=== PATIENT | male | born 1945 | race Caucasian/White ===

== ENCOUNTER 2018-02-16 09:43 | Emergency (ER) | payer MEDICARE, SELFPAY ==
[2018-02-16 09:46] VITALS: BP 152/72; PULSE 79; RESP 18; TEMP 36.4; O2SAT 96
--- NOTE | 2018-02-16 09:58 | W.ED.GENAD ---
Discharge Plan Disposition Patient Disposition: HOME Condition: Good Discharge Details Chief Complaint: EyeProblem Clinical Impression: Bronchitis, Conjunctivitis Primary Care Provider: Edie Graham ED Provider: Ajit Hernandez Home Meds and New Rx's Prescriptions: New azithromycin 250 mg tablet See Rx Instructions .ROUTE .COMPLEX Qty: 6 RF: 0 tobramycin 0.3 % drops 1 drp OP Q3H Qty: 5 RF: 0 No Action promethazine-codeine 6.25-10 mg/5 mL syrup 5 ml PO Q4H PRN (Reason: cough) Qty: 150 RF: 0 ibuprofen 200 MG capsule 200 mg PO PRN PRNRF: 0 cetirizine [Zyrtec] 10 MG tablet 10 mg PO DAILY RF: 0 fluticasone [Flonase Allergy Relief] 9.9 ML spray,suspension 1 spry NS DAILY PRNRF: 0 ProAir HFA 8.5 GM HFA aerosol inhaler 1 puff Inhalation Q4H PRN 30 Days Qty: 1 RF: 6 Varicella-Zoster Ge/As01b/Pf [Shingrix Vial Kit] 50 MCG INJ 50 mcg IM ONCE Qty: 1 RF: 1 nadolol 20 MG tablet 20 mg PO DAILY RF: 0 atorvastatin 10 mg tablet 10 mg PO DAILY Qty: 90 RF: 3 allopurinol 300 mg tablet 300 mg PO DAILY Qty: 90 RF: 3 Discharge Instructions Instructions: Acute Bronchitis (ED), Conjunctivitis (ED) Additional Instructions: Please take the medications as directed. If you notice any worsening of your symptoms, or any new symptoms such as vomiting, diarrhea, fever, chills, shortness of breath, chest pain, numbness, weakness, or fainting , please return immediately to the emergency department for reevaluation. Please follow up with your primary care provider as soon as possible for reassessment and reevaluation. As always, it was a pleasure participating in your medical care today. Referrals: Edie Graham NP [Primary Care Provider] - [facility] General Date/Time Provider Initiated Documentation: 02/16/18 09:51. Related Data Home Medications Medication Instructions Recorded Confirmed ibuprofen 200 mg PO PRN PRN 06/18/12 02/14/18 cetirizine [Zyrtec] 10 mg PO DAILY tab-cap 02/21/13 02/14/18 fluticasone [Flonase Allergy 1 spry NS DAILY PRN 02/17/15 02/14/18 Relief] albuterol sulfate [Proair Hfa] 1 puff INHALATION Q4H PRN 30 Days 08/21/17 02/14/18 #1 inhaler nadolol 20 mg PO DAILY tab-cap 09/11/17 02/14/18 allopurinol 300 mg tablet 300 mg PO DAILY #90 tab-cap 01/10/18 02/14/18 atorvastatin 10 mg tablet 10 mg PO DAILY #90 tab 01/10/18 02/14/18 promethazine 6.25 mg-codeine 10 5 ml PO Q4H PRN #150 ml 02/14/18 02/14/18 mg/5 mL syrup azithromycin See Rx Instructions .ROUTE 02/16/18 .COMPLEX #6 tab tobramycin 1 drp OP Q3H #5 ml 02/16/18 Previous Rx's Medication Instructions Recorded albuterol sulfate [Proair Hfa] 1 puff INHALATION Q4H PRN 30 Days 08/21/17 #1 inhaler allopurinol 300 mg tablet 300 mg PO DAILY #90 tab-cap 01/10/18 atorvastatin 10 mg tablet 10 mg PO DAILY #90 tab 01/10/18 promethazine 6.25 mg-codeine 10 5 ml PO Q4H PRN #150 ml 02/14/18 mg/5 mL syrup azithromycin See Rx Instructions .ROUTE 02/16/18 .COMPLEX #6 tab tobramycin 1 drp OP Q3H #5 ml 02/16/18 Allergies Allergy/AdvReac Type Severity Reaction Status Date / Time amoxicillin [Amoxicillin] AdvReac Intermediate thrush Verified 02/14/18 13:05 omeprazole AdvReac Mild abdominal Verified 02/14/18 13:05 pain General Stated Complaint: EyeProblem BETTY: 4 PFSH Surgical History 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 Other COPD (chronic obstructive pulmonary disease) Social History Smoking/Tobacco Use Status: Never Course Vital Signs Temperature 36.4 C L 02/16/18 09:46 Pulse 79 02/16/18 09:46 Respiratory Rate 18 02/16/18 09:46 Blood Pressure 152/72 H 02/16/18 09:46 Pulse Oximetry 96 02/16/18 09:46 Temperature 36.4 C L 02/16/18 09:46 Temperature Source Temporal Artery Scan 02/16/18 09:46 Pulse 79 02/16/18 09:46 Respiratory Rate 18 02/16/18 09:46 Respiratory Effort Non-Labored 02/16/18 09:46 Blood Pressure 152/72 H 02/16/18 09:46 Blood Pressure Position Sitting 02/16/18 09:46 Pulse Oximetry 96 02/16/18 09:46 Oxygen Delivery Method Room Air 02/16/18 09:46 Oxygen Flow Rate 0 02/16/18 09:46 Pain Level 0 02/16/18 09:46
== END 2018-02-16 10:05 | disposition home or self-care (01) ==
LOC: ER 10:07
PROVIDERS: Emergency Provider Student in an Organized Health Care Education/Training Program; PCP Nurse Practitioner
DX: J40 Bronchitis, not specified as acute or chronic (principal); H10.9 Unspecified conjunctivitis
CPT/HCPCS: 99283

== ENCOUNTER 2018-06-13 00:35 | Outpatient (CLI) | payer MEDICARE, SELFPAY ==
--- NOTE | 2018-06-13 15:09 | DI.US_ITS ---
SYMPTOM/DIAGNOSIS: RADICULAR PAIN ORIGINATING FROM FEMORAL TRIANGLE, PAIN RT LEG, M79.604 DUPLEX VENOUS ULTRASOUND RIGHT LOWER EXTREMITY: The study was carried out according to the usual protocol. The superficial, femoral, popliteal and proximal trifurcation in the superior portion of the leg are well seen. Good compressibility is noted throughout. Flow is demonstrated and flow augmentation was easily elicited with calf compression. SUMMARY: There is no evidence of DVT.
== END 2018-06-13 00:55 ==
PROVIDERS: PCP Family Medicine; Visit Provider Family Medicine
DX: M79.604 Pain in right leg (principal); M54.10 Radiculopathy, site unspecified
CPT/HCPCS: 93971

== ENCOUNTER 2018-09-03 07:28 | Outpatient (CLI) | payer MEDICARE, SELFPAY ==
[2018-09-03 09:23] LABS: ALT 49 U/L (12-78); AST 24 U/L (15-37); Albumin 3.8 g/dL (3.4-5.0); Alkaline Phosphatase 60 U/L (46-116); Anion Gap 9.1 mmol/L (3-11); BUN 23 mg/dL (7-18); Bilirubin, Total 0.8 mg/dL (0.2-1.0); CO2 28.9 mmol/L (21.0-32.0); CREATININE 0.87 mg/dL (0.70-1.30); Calcium 8.9 mg/dL (8.5-10.1); Calculated LDL 79 mg/dL; Chloride 104 mmol/L (98-107); Cholesterol 148 mg/dL (50-200); Glucose 150 mg/dL (70-100); HDL Cholesterol 39 mg/dL (40-60); Potassium 4.8 mmol/L (3.5-5.1); Sodium 142 mmol/L (136-145); Total Protein 6.9 g/dL (6.4-8.2); Triglyceride 154 mg/dL (30-150)
== END 2018-09-03 07:48 ==
PROVIDERS: PCP Family Medicine; Visit Provider Family Medicine
DX: K74.60 Unspecified cirrhosis of liver (principal); E78.5 Hyperlipidemia, unspecified
CPT/HCPCS: 36415; 80053; 80061; 83721

== ENCOUNTER 2019-06-05 08:19 | Outpatient (CLI) | payer MEDICARE, SELFPAY ==
--- NOTE | 2019-06-05 07:00 | DI.RAD_ITS ---
EXAM: XR HIP LT COMPLETE AP PELVIS CLINICAL HISTORY: Left Hip Pain TECHNIQUE: COMPARISON: No exams were available for comparison FINDINGS: Three views were obtained. The cartilaginous joint spaces of the hips are mildly narrowed superiorly . There is mild subchondral sclerosis of the acetabula bilaterally. There are moderate hypertrophic acetabular changes and mild spurring at greater trochanters of the femurs bilaterally. Femoral head s appear fairly well maintained. No other significant abnormality seen. 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
--- NOTE | 2019-06-05 08:15 | DI.RAD_ITS ---
EXAM: XR SHOULDER LT COMPLETE 2+V CLINICAL HISTORY: left shoulder pain TECHNIQUE: COMPARISON: No exams were available for comparison FINDINGS: Two views were obtained. There are minimal hypertrophic degenerative changes at the acromioclavicula r joint and slight inferior acromial spurring is noted. Minimal spurring noted at the greater tubero sity of the humerus. There are probable sub chondral cysts of the humeral head. Cartilaginous joint space of the glenohumeral joint may be mildly narrowed. There are mild to moderate glenoid marginal osteophytes. IMPRESSION: Mild degenerative changes of glenohumeral and acromioclavicular joints as described above.
--- NOTE | 2019-06-05 08:15 | DI.RAD_ITS ---
EXAM: XR SHOULDER RT COMPLETE 2+V CLINICAL HISTORY: right shoulder pain TECHNIQUE: COMPARISON: XR SHOULDER LT COMPLETE 2+V from 06/05/2019 FINDINGS: Two views were obtained. There are moderate hypertrophic degenerative changes of the acromioclavicul ar joint. Moderate hypertrophic spurring inferior acromion is noted. Mild degenerative spurring of the glenoid and to a lesser degree the humeral head noted. Cartilaginous joint space of the glenohum eral joint may be mildly narrowed. IMPRESSION: Mild DJD glenohumeral joint, moderate DJD acromioclavicular joint.
== END 2019-06-05 08:39 ==
PROVIDERS: PCP Family Medicine; Visit Provider Student in an Organized Health Care Education/Training Program
DX: M25.511 Pain in right shoulder (principal); M19.011 Primary osteoarthritis, right shoulder; M25.512 Pain in left shoulder; M19.012 Primary osteoarthritis, left shoulder; M25.552 Pain in left hip; M16.0 Bilateral primary osteoarthritis of hip; M75.51 Bursitis of right shoulder; M75.52 Bursitis of left shoulder; M25.852 Other specified joint disorders, left hip; M16.12 Unilateral primary osteoarthritis, left hip; I10 Essential (primary) hypertension; E11.9 Type 2 diabetes mellitus without complications; Z79.84 Long term (current) use of oral hypoglycemic drugs
CPT/HCPCS: 99203; 99214; 73030; 73502

== ENCOUNTER 2019-08-25 01:41 | Outpatient (CLI) | payer MEDICARE, SELFPAY ==
[2019-08-25 16:43] LABS: ALT 42 U/L (16-63); AST 28 U/L (15-37); Alkaline Phosphatase 62 U/L (46-116); BUN 21 mg/dL (7-18); Bilirubin, Total 0.6 mg/dL (0.2-1.0); Chloride 104 mmol/L (98-107); Glucose 92 mg/dL (74-106); Potassium 4.1 mmol/L (3.5-5.1); Sodium 141 mmol/L (136-145)
== END 2019-08-25 02:01 ==
PROVIDERS: PCP Family Medicine; Visit Provider Family Medicine
DX: E11.9 Type 2 diabetes mellitus without complications (principal)
CPT/HCPCS: 36415; 80053

== ENCOUNTER 2020-10-11 15:44 | Outpatient (CLI) | payer MEDICARE, SELFPAY ==
--- NOTE | 2020-10-11 15:30 | DI.RAD_ITS ---
Exam(s) XR LUMBAR SPINE AP, LAT EXAM: XR LUMBAR SPINE AP, LAT CLINICAL HISTORY: low back pain. TECHNIQUE: 2D digital imaging was performed. COMPARISON: No exams were available for comparison FINDINGS: There is partial sacralization of the L5 vertebral body. There is normal alignment of the lumbar spi ne. Throughout the lumbar spine there is disc space narrowing and endplate osteophytes. Degenerativ e changes are seen in the facets in the lower lumbar spine. No acute fracture or subluxation. The b ones are normally mineralized. There is atherosclerosis. IMPRESSION: Moderately severe degenerative changes in the lumbar spine. DATA REPOSITORY: RADIATION DOSE DELIVERED:
== END 2020-10-11 15:45 | disposition home or self-care (01) ==
LOC: DIORS 15:44
PROVIDERS: PCP Family Medicine; Referring Provider Family Medicine; Visit Provider Student in an Organized Health Care Education/Training Program
DX: M54.5 Low back pain (principal); M47.816 Spondylosis without myelopathy or radiculopathy, lumbar region
CPT/HCPCS: 99214; 72100

== ENCOUNTER → 2021-07-19 00:32 | Outpatient (CLI) | payer MEDICARE, SELFPAY ==
--- NOTE | 2021-07-19 06:45 | DI.CT_ITS ---
Exam(s) CT RENAL COLIC WO EXAM: CT RENAL COLIC WO CLINICAL HISTORY: Evaluate for nephrolithiasis, rt flank pain, r10.9. TECHNIQUE: Imaging Protocol: Axial computed tomography images with coronal and sagittal reformatted images were created and reviewed. CONTRAST MATERIAL: Noncontrast COMPARISON: No exams were available for comparison FINDINGS: ABDOMEN: Lung Bases: Normal where visualized. Liver: Enlarged. Hepatic steatosis. No measurable mass. Gallbladder and biliary tract: No radiodense calculus or dilation. Pancreas: Normal density, no calcifications or inflammatory process. Spleen: Normal. Kidneys: Normal size, contour and axis. No radiodense stones or obstructive uropathy. Small parapelv ic cysts. No masses seen. Adrenal glands: No masses seen. Abdominal Aorta: Abdominal portion non-dilated. Atherosclerotic changes. PELVIS: Bladder: Symmetric distention, mild wall thickening. Prostate slightly enlarged. Bowel: Prominent diverticulosis. No evidence of diverticulitis. Appendix normal. Normal quantity o f stool. Both no obstruction or bowel wall thickening. Peritoneal cavity: No ascites, collection or mesenteric inflammatory response. Soft tissues: Small fa tty containing umbilical hernia. Fatty containing bilateral inguinal hernias, left greater than righ t. Bones: Degenerative disc changes and facet degenerative changes throughout. No compression fractures .. IMPRESSION: Small bilateral renal parapelvic cysts. No evidence of stones, suspicious masses or hydronephrosis. Mild bladder wall thickening. RADIATION DOSE DELIVERED: 1,432.71mGy.cm Total DLP DATA REPOSITORY: All CT scans at this facility are submitted to the National Radiology Data Registry (NRDR) Dose Index Registry (DIR) with the [employer] (ACR). RADIATION OPTIMIZATION: All CT scans at this facility use at least one of these dose optimization te chniques: automated exposure control; mA and/or kV adjustment per patient size (includes targeted exa ms where dose is matched to clinical indication); or iterative reconstruction.
== END ==
PROVIDERS: PCP Family Medicine; Visit Provider Family Medicine
DX: R10.31 Right lower quadrant pain (principal); K76.0 Fatty (change of) liver, not elsewhere classified; R16.0 Hepatomegaly, not elsewhere classified; N40.0 Benign prostatic hyperplasia without lower urinary tract symptoms; N32.89 Other specified disorders of bladder
CPT/HCPCS: 74176

== ENCOUNTER 2021-09-03 07:34 | Emergency (ER) | payer MEDICARE, SELFPAY ==
[2021-09-03] VITALS (15 sets, daily range): BP systolic 124–182; BP diastolic 52–67; PULSE 58–72; RESP 10–23; O2SAT 95–97
--- NOTE | 2021-09-03 07:30 | RT.EKG_ITS ---
APPROVED REPORT Exam: Resting ECG Reason for Exam: chest pain Patient Location: E HR:71 bpm ECG Measurements Heart Rate 71 AXIS MI 229 P 9 QRSd 118 QRS -37 QT 407 T 11 QTc 443 Conclusion Sinus rhythm...normal P axis, V-rate 60- 99 Prolonged MI interval...MI >220, V-rate 50- 90 Incomplete left bundle branch block...QRSd>110mS, terminal axis(-90,-1) PHysician: no stemi, unchanged from prior ekg on 1216
--- NOTE | 2021-09-03 07:30 | DI.RAD_ITS ---
Exam(s) XR CHEST 2V PA LATERAL EXAM: XR CHEST 2V PA LATERAL CLINICAL HISTORY: chest pain TECHNIQUE: 2D digital imaging was performed of the chest. Two images were obtained. PA and lateral views were obtained. COMPARISON: CR CHEST 2 VIEWS PA,LAT from 02/07/2016 FINDINGS: Due to patient positioning, a portion of the lower right chest wall is not included on this examinati on. MEDIASTINUM: Normal. HEART: Normal. PULMONARY VASCULATURE: Normal. There is tortuosity and ectasia of the thoracic aorta. It appears mor e prominent compared to the examination from 02/07/2016 LUNGS: Clear. PLEURAL SPACE: No pleural effusion or pneumothorax. BONE:Within normal limits for the patient's age. OTHER FINDINGS:Normal. IMPRESSION: No acute pulmonary findings. DATA REPOSITORY: RADIATION DOSE DELIVERED:
--- NOTE | 2021-09-03 07:45 | ED.GENADUL_ITS ---
Discharge Plan Disposition Patient Disposition: STILL A PATIENT Condition: Good Discharge Details Clinical Impression: Gout, unspecified, Acute pain of right foot Primary Care Provider: Yandel Sosa ED Provider: Ajit Hernandez Home Meds and New Rx's Prescriptions: No Action celecoxib [Celebrex] 200 mg capsule 200 mg PO BID Qty: 60 1RF ibuprofen 200 MG capsule 200 mg PO PRN PRN cetirizine [Zyrtec] 10 MG tablet 10 mg PO DAILY fluticasone propionate [Flonase Allergy Relief] 9.9 ML spray,suspension 1 spry NS DAILY PRN albuterol sulfate [ProAir HFA] 8.5 GM HFA aerosol inhaler 1 puff Inhalation Q4H PRN 30 Days Qty: 1 6RF allopurinol 300 mg tablet 300 mg PO DAILY Qty: 90 3RF carvedilol 12.5 mg tablet 12.5 mg PO BID Qty: 180 3RF Rx Instructions: must administer with a meal/food atorvastatin 10 mg tablet 10 mg PO DAILY Qty: 90 3RF metformin 500 mg tablet 500 mg PO BID Qty: 180 3RF losartan 50 mg tablet 50 mg PO DAILY Qty: 90 3RF Medical Decision Making This is a pleasant 76-year-old male with a past medical history of diabetes, hypertension, high cholesterol, who presents today for evaluation of chest pain. Patient states that over the last 1 to 2 days he has had mild increased shortness of breath which she attributed to the increased temperatures and summer weather as of late, however this morning at about 5:30 AM he developed a stabbing right central chest pain, which was worse with exertion, and improved by rest. EMS was contacted, and he was given 325 of aspirin and nitroglycerin. Nitroglycerin seemed to completely relieve his pain. He was brought to the ER for further assessment. Currently he admits to very mild ache, but denies any other complaint. He denies any cough, fever, or shortness of breath currently. He denies any numbness, tingling or weakness. He denies any family history or personal history of cardiac disease otherwise. No other complaints at this time. No history of blood clots. No history of aneurysm or dissection. Physical exam demonstrates a well-appearing male, no signs of acute distress currently, he is hypertensive but vital signs are otherwise stable. Limited bedside echo shows good cardiac contractility at the apex, but the proximal lateral wall seems to be minimally diminished. However this is clearly a limited bedside echo. Difficulty visualizing the right ventricle otherwise. Differential is certainly high for potential cardiac etiology with the patient's symptoms and risk factors. Heart score is moderate. We will evaluate for concerning etiologies, give nitroglycerin as needed, monitor closely and reassess. Patient will be signed out to my colleague Dr. Lyndsay Dyson for follow-up on labs and reassessment. HPI General Date/Time Provider Initiated Documentation: 09/03/21 07:43 . HPI Narrative: This is a pleasant 76-year-old male with a past medical history of diabetes, hypertension, high cholesterol, who presents today for evaluation of chest pain. Patient states that over the last 1 to 2 days he has had mild increased shortness of breath which she attributed to the increased temperatures and summer weather as of late, however this morning at about 5:30 AM he developed a stabbing right central chest pain, which was worse with exertion, and improved by rest. EMS was contacted, and he was given 325 of aspirin and nitroglycerin. Nitroglycerin seemed to completely relieve his pain. He was brought to the ER for further assessment. Currently he admits to very mild ache, but denies any other complaint. He denies any cough, fever, or shortness of breath currently. He denies any numbness, tingling or weakness. He denies any family history or personal history of cardiac disease otherwise. No other complaints at this time. No history of blood clots. No history of aneurysm or dissection. Related Data Home Medications Medication Instructions Recorded Confirmed ibuprofen 200 mg capsule 200 mg PO PRN PRN 06/18/12 10/16/20 cetirizine 10 mg tablet (Zyrtec) 10 mg PO DAILY 02/21/13 10/16/20 fluticasone propionate 50 1 spry NS DAILY PRN 02/17/15 10/16/20 mcg/actuation nasal spray,suspension (Flonase Allergy Relief) albuterol sulfate 90 mcg/actuation 1 puff inhalation Q4H PRN 30 days 08/21/17 10/16/20 aerosol inhaler (ProAir HFA) ##1 allopurinol 300 mg tablet 300 mg PO DAILY #90 tab-caps 08/30/20 10/16/20 celecoxib 200 mg capsule (Celebrex) 200 mg PO BID #60 caps 10/11/20 10/11/20 carvedilol 12.5 mg tablet 12.5 mg PO BID #180 tabs 12/31/20 atorvastatin 10 mg tablet 10 mg PO DAILY #90 tabs 05/12/21 metformin 500 mg tablet 500 mg PO BID #180 tabs 05/12/21 losartan 50 mg tablet 50 mg PO DAILY #90 tabs 06/02/21 Previous Rx's Medication Instructions Recorded albuterol sulfate 90 mcg/actuation 1 puff inhalation Q4H PRN 30 days 08/21/17 aerosol inhaler (ProAir HFA) ##1 allopurinol 300 mg tablet 300 mg PO DAILY #90 tab-caps 08/30/20 celecoxib 200 mg capsule (Celebrex) 200 mg PO BID #60 caps 10/11/20 carvedilol 12.5 mg tablet 12.5 mg PO BID #180 tabs 12/31/20 atorvastatin 10 mg tablet 10 mg PO DAILY #90 tabs 05/12/21 metformin 500 mg tablet 500 mg PO BID #180 tabs 05/12/21 losartan 50 mg tablet 50 mg PO DAILY #90 tabs 06/02/21 Allergies Allergy/AdvReac Type Severity Reaction Status Date / Time amoxicillin [Amoxicillin] AdvReac Intermediate thrush Verified 07/12/21 13:48 omeprazole AdvReac Mild abdominal Verified 07/12/21 13:48 pain General BETTY: 4 Review of Systems All systems reviewed & are unremarkable except as noted in HPI and below PFSH All Active Problems (Updated 09/03/21 @ 07:54 by Ajit Hernandez DO) Acute pain of right foot (Acute) Right flank pain (Acute) Functional diarrhea (Acute) Cataracts, bilateral (Acute) 02/02/21 [facility] Lumbar spondylosis (Acute) Conductive hearing loss, external ear (Acute) Impacted cerumen, bilateral (Acute) Asymmetrical sensorineural hearing loss (Acute) Environmental allergies (Acute) Habitual alcohol use (Acute) Diabetes mellitus (Chronic) Lactose intolerance (Acute) Colonic polyp (Acute) Colonoscopy Spring 2019; inadequate prep, needs repeat in 1-2 years Degenerative joint disease of left hip (Acute) Left hip impingement syndrome (Acute) Bursitis of left shoulder (Acute ~02/2019) Bursitis of right shoulder (Acute ~02/2019) Renal cyst (Acute) Type 2 diabetes mellitus without complications (Chronic) elevated bs dx 2013 Portal hypertension (Chronic) 02/20/18 [facility] [place] [facility] Cirrhosis of liver without ascites (Chronic) 03/02/18 [facility] [place] 08/26/19 F/U GI Other and unspecified hyperlipidemia (Chronic 09/05/12) PCEq 19.7%; LDL baseline 173 Obstructive sleep apnea (Chronic 10/22/13) Dr García C-PAP [facility] Obesity, unspecified (Chronic 02/20/11) Gout, unspecified (Chronic 09/05/12) Fatty liver (Chronic 12/09/14) Dr Misha [facility] follows immunization for Hep A&C recommended 12/2015 Essential hypertension (Chronic 12/31/12) Elev transaminase/LDH (Chronic 02/20/11) FATTY LIVER Chronic rhinitis (Chronic 02/20/11) Asthma (Chronic 10/01/13) PFT NL 10/2013 (low ERV) Medical History Chronic back pain Hypercholesterolemia Surgical History 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 Sister No problems noted. Sister No problems noted. Son No problems noted. Daughter No problems noted. Daughter No problems noted. Other COPD (chronic obstructive pulmonary disease) Social History Smoking/Tobacco Use Status: Never Smoking risk assessment performed?: Yes Alcohol Intake: current Alcohol Intake frequency: a few times a week Alcohol type: wine Drug use: Never Substance use type: does not use Adopted: No Household members: spouse Housing: house Number of Children: 3 Communication Needs: Corrective Lenses current occupation: Realtor Pets and animals: No Current gender identity: male What is your relationship status?: How often do you talk on the phone with friends or family?: three or more times per week Panel score (0-1 are the most socially isolated patients): 2 What type of physical activity do you participate in: walking Duration: 15-30 minutes/day Frequency: daily Seatbelt use: always Drive intox or ride w/intox local flatbed driver: No Working smoke detector in home: Yes Carbon monox detector in home: Yes Do you feel safe at home: Yes Do you feel safe in your relationship?: Yes Exam Narrative Exam Narrative: 1.Const: Well-nourished, Well-developed, appearing stated age 2.Eyes: PERRL, no conjunctival injection, and symmetrical lids. 3.ENT: Atraumatic external nose and ears. Moist MM. Neck: Symmetric, trachea midline, No thyromegaly. 4.CVS: +S1/S2, No murmurs or gallops. Peripheral pulses 2+ and equal in all extremities. Brisk capillary refill in all extremities. 5.RESP: Unlabored respiratory effort. Clear to auscultation bilaterally. No wheezes rales or rhonchi 6.GI: Soft, Nontender/Nondistended, No hepatosplenomegaly. No guarding or rebound. 7.MSK: Normocephalic/Atraumatic, Extremities w/o deformity or ttp No cyanosis or clubbing, Normal movement of all extremities 8.Skin: Warm, Dry. No rashes or lesions. 9.Neuro: psychology lecturer II-XII grossly intact. Sensation grossly intact, no focal neurologic deficits. 10.Psych: (AAO) x3. Appropriate mood and affect Sign Out Sign Out Data: Sign Out Comment: Chest pain, follow-up on labs and imaging. Last updated by Ajit Hernandez DO at 09/03/21 07:53
[2021-09-03 07:56] LABS: Abs Immature Grans 0.02 10^3/uL (0.0-0.06); Absolute Basophil Count 0.03 10^3/uL (0.0-0.2); Absolute Eosinophil Count 0.23 10^3/uL (0.0-0.7); Absolute Lymphocyte Count 1.13 10^3/uL (1.2-3.4); Absolute Monocyte Count 0.34 10^3/uL (0.1-0.8); Absolute Neutrophil Count 4.47 10^3/uL (1.2-6.7); Basophils % 0.5; Eosinophils % 3.7; HCT 43.3 % (40.0-50.0); HGB 14.9 g/dL (13.5-17.5); Immature Grans % 0.3; Lymphocytes % 18.2; MCH 32.3 pg (27.0-33.0); MCHC 34.4 % (32.0-36.0); MCV 94 fL (80-95); MPV 9.8 fL (8.0-11.0); Monocytes % 5.5; Neutrophils % 71.8; Platelet Count 143 10^3/uL (130-400); RBC 4.61 10^6/uL (4.36-5.78); RDW 12.3 % (11.8-14.1); RDW-SD 42.4 fL; WBC 6.22 10^3/uL (4.4-10.8)
[2021-09-03] MEDS: nitroGLYcerin 0.4 MG TAB SL (07:59)
[2021-09-03 08:09] LABS: Prothrombin Time 10.4 sec (9.3-11.0)
[2021-09-03 08:17] LABS: ALT 54 U/L (16-63); AST 33 U/L (15-37); Albumin 4.1 g/dL (3.4-5.0); Alkaline Phosphatase 68 U/L (46-116); Anion Gap 7.8 mmol/L (3-11); BUN 19 mg/dL (7-18); Bilirubin, Total 0.6 mg/dL (0.2-1.0); CO2 28.2 mmol/L (21.0-32.0); CREATININE 0.9 mg/dL (0.70-1.30); Chloride 104 mmol/L (98-107); Glucose 134 mg/dL (74-106); Lipase 138 U/L (73-393); NT-proBNP 88 pg/mL (<300); Potassium 4.4 mmol/L (3.5-5.1); Sodium 140 mmol/L (136-145); Total Protein 7.6 g/dL (6.4-8.2); Troponin I < 50 ng/L (<or=60)
--- NOTE | 2021-09-03 09:30 | DI.CT_ITS ---
Exam(s) CT THORAX ABD/PEL CTA EXAM: CT THORAX ABD/PEL CTA CLINICAL HISTORY: enlarged aorta, chest pain. TECHNIQUE: Imaging Protocol: Axial CT angiography was performed with multi-slice acquisition and m ulti-planar and/or 3D reconstructions. CONTRAST MATERIAL: Intravenous: Omnipaque 350 contrast volume:100 mL Oral: No COMPARISON: CT CT RENAL COLIC WO from 07/19/2021 FINDINGS: CHEST: Tracheobronchial tree: Patent where visualized. Pulmonary parenchyma: No consolidation or dominant measurable mass. No architectural distortion. Marlene fissural nodules are seen associated with both the right major and right minor fissures. There is a 4.6 mm pulmonary nodule in the superior segment of the left lower lobe. No other pulmonary nodules a re seen. Pulmonary Arteries: No evidence of filling defect to suggest pulmonary emboli. Mediastinum and Janelle: No dominant adenopathy or fluid collection. Visualized thyroid: Unremarkable. Pleura: No effusion or pneumothorax. Heart: The heart is not dilated. Mild coronary artery calcification is present. No pericardial effus ion. Aorta: The ascending thoracic aorta measures 4.5 cm in diameter. No evidence of dissection. Mild at herosclerosis. Soft Tissues: Unremarkable. Bones: Within normal limits for the patient's age. ABDOMEN AND PELVIS: Abdomen: Celiac axis/mesenteric arteries: No evidence of occlusion or significant stenosis. Renal Arteries: No evidence of occlusion or significant stenosis. There is a single renal artery per fusing each kidney. Mild atherosclerosis. Aorta: No evidence of occlusion or significant stenosis. No aneurysm or dissection. Atherosclerosi s. Pelvis: Iliac Arteries: No evidence of occlusion or significant stenosis. There is a 2nd lumen along the po sterior aspect of the distal left common iliac artery. It is unchanged compared to the examination f rom 07/19/2021 and may reflect an old dissection. Common Femoral Arteries: No evidence of occlusion or significant stenosis. ABDOMEN: Liver: There is fatty infiltration of the liver. No measurable mass. Gallbladder and Biliary Tract: No radiodense calculus or dilation. Pancreas: Normal density, no abnormal calcifications or inflammatory process. Spleen: Normal. Adrenals: No masses seen. Kidneys: Normal size, contour and axis. No radiodense stones or obstructive uropathy. No masses seen. Parapelvic cysts are seen bilaterally. Bowel: No obstruction or bowel wall thickening. Appendix is unremarkable. There is diverticulosis of the colon but no evidence of acute diverticulitis. Peritoneal Cavity: No ascites, collection or mesenteric inflammatory response. No free air. Lymph Nodes: Within normal limits. Bones: Within normal limits for the patient's age. Soft Tissues: There are bilateral fat containing inguinal hernias. There is a fat containing umbilic al hernia. PELVIS: Bladder: Symmetric distention, no gross wall thickening. Reproductive Organs: Unremarkable as visualized. Lymph Nodes: Within normal limits. Bones: Within normal limits for the patient's age. IMPRESSION: 1. No evidence of a pulmonary embolism or thoracic aortic dissection. 2. 4.6 mm nodule in the left lower lobe. For low risk patients, no follow-up is recommended. For hi gh risk patients, history of smoking or other risk factors, [address] scan is optional. (Jose Enrique hardy t analy, 2017). 3. No evidence of an acute abdominal dissection or aneurysm. 4. A 2nd lumen is seen in the left common iliac artery which is unchanged and may represent a remote dissection. 5. No acute abdominal or pelvic process. RADIATION DOSE DELIVERED: 1,371.26mGy.cm Total DLP DATA REPOSITORY: All CT scans at this facility are submitted to the National Radiology Data Registry (NRDR) Dose Index Registry (DIR) with the [employer] (ACR). RADIATION OPTIMIZATION: All CT scans at this facility use at least one of these dose optimization te chniques: automated exposure control; mA and/or kV adjustment per patient size (includes targeted exa ms where dose is matched to clinical indication); or iterative reconstruction.
--- NOTE | 2021-09-03 09:34 | DI.VRAD_ITS ---
PROCEDURE INFORMATION: Exam: XR Chest Exam date and time: 09/03/2021 8:36 AM Age: 76 years old Clinical indication: Pain; Chest pressure TECHNIQUE: Imaging protocol: Radiologic exam of the chest. Views: 2 views. COMPARISON: CR CHEST 2 VIEWS PA,LAT 07/02/2016 10:10 FINDINGS: Lungs: Lungs are clear with no infiltrate or nodule. Pleural spaces: Unremarkable. No pleural effusion. No pneumothorax. Heart/Mediastinum: Heart size is upper normal. Vasculature: Aorta is prominently ectatic and appears enlarged compared to previous exam. Bones/joints: Unremarkable. IMPRESSION: Markedly ectatic aorta approaching aneurysmal dilatation. Dictated and Authenticated by: Jc Lazaro MD. Ordering:ALISON Fong MD
[2021-09-03] MEDS: Omnipaque 350 MG/ML 100 ML BTL IJ (11:06)
[2021-09-03] MEDS: Normal Saline Flush 10 ML SYR IVP (11:07)
[2021-09-03 11:32] LABS: Troponin I < 50 ng/L (<or=60)
--- NOTE | 2021-09-03 11:33 | DI.VRAD_ITS ---
PROCEDURE INFORMATION: Exam: CTA Chest With Contrast CTA Abdomen and Pelvis With Contrast Exam date and time: 09/03/2021 10:58 AM Age: 76 years old Clinical indication: Other: Enlarged aorta, chest pain TECHNIQUE: Imaging protocol: Computed tomographic angiography of the chest with contrast. Computed tomographic angiography of the abdomen and pelvis with contrast. 3D rendering (Not supervised by radiologist): MIP and/or 3D reconstructed images were created by the technologist. Contrast material: OMNIPAQUE 350; Contrast volume: 100 ml; Contrast route: INTRAVENOUS (IV); COMPARISON: CR XR CHEST 2V PA LATERAL 03/09/2021 08:36 FINDINGS: VASCULATURE: Pulmonary arteries: Normal. No pulmonary emboli. Aorta: The ascending aorta is dilated to 4.5 cm. The descending aorta is normal measuring 2.7 cm. There is no dissection. Mild atherosclerosis is present. The infrarenal aorta is mildly atherosclerotic but normal in caliber. Celiac trunk and mesenteric arteries: No occlusion or significant stenosis. Renal arteries: No occlusion or significant stenosis. Right iliac arteries: No occlusion or significant stenosis. Left iliac arteries: No occlusion or significant stenosis. CHEST: Lungs: No pulmonary infiltrate. There is a 7 mm slightly irregular nodule in the posterior left lung base. Pleural spaces: Unremarkable. No pneumothorax. No pleural effusion. Heart: Unremarkable. No cardiomegaly. No pericardial effusion. ABDOMEN AND PELVIS: Liver: No mass. Diffuse fatty infiltration. Gallbladder and bile ducts: Unremarkable. No calcified stones. No ductal dilation. Pancreas: Unremarkable. No mass. No ductal dilation. Spleen: Unremarkable. No splenomegaly. Adrenal glands: Unremarkable. No mass. Kidneys and ureters: Kidneys show some involutional change with cortical thinning. There are multiple parapelvic cysts. No hydronephrosis or calculus.. Stomach and bowel: Unremarkable. No obstruction. No mucosal thickening. Appendix: No evidence of appendicitis. Intraperitoneal space: Unremarkable. No free air. No significant fluid collection. Urinary bladder: Unremarkable. No mass. Reproductive: Unremarkable as visualized. Lymph nodes: Unremarkable. No enlarged lymph nodes. Bones/joints: Unremarkable. No acute fracture. Degenerative changes throughout the spine. Soft tissues: Unremarkable. IMPRESSION: 1. There is dilatation of the ascending aorta to 4.5 cm. Aorta otherwise shows only mild atherosclerosis. 2. Prominent hepatic steatosis is noted. 3. No acute abnormality. Dictated and Authenticated by: Jc Lazaro MD. Ordering:JELENA Cavazos MD
--- NOTE | 2021-09-03 11:49 | NUR.NOTE ---
Nursing Note: Referral faxed to [facility] for chest pain, for SunSeptember 05 or September 06.
--- NOTE | 2021-09-03 11:51 | W.EDPROG ---
Date of service: 09/03/21 Time of Service: 11:52 Medical Decision Making Patient resting comfortably no acute distress chest pain-free. Hemodynamically stable. 2 troponin negative. Labs unremarkable. Imaging consistent with chronic aortic dilation to 4.5 cm, no evidence of dissection or mural thrombus. Patient is following up with his primary care physician on Sunday and has been instructed to have repeat screening imaging performed as an outpatient. Patient will also be given cardiology referral for Sunday or Sunday given chest discomfort described earlier today. Given strict return precautions for worsening symptoms such as chest pain shortness of breath presyncope or other abnormal symptoms. Patient family feel comfortable going home. Instructed to start taking 81 mg aspirin daily patient denies bleeding diathesis or history of GI bleeds. Sign Out Sign Out Data: Sign Out Comment: Chest pain, follow-up on labs and imaging. Last updated by Ajit Hernandez DO at 09/03/21 07:53 Discharge Plan Disposition Patient Disposition: HOME Condition: Improving Discharge Details Clinical Impression: Chest pain, Thoracic aortic aneurysm Primary Care Provider: Yandel Sosa ED Provider: Dirk Munroe Home Meds and New Rx's Prescriptions: No Action ibuprofen 200 MG capsule 200 mg PO PRN PRN cetirizine [Zyrtec] 10 MG tablet 10 mg PO DAILY fluticasone propionate [Flonase Allergy Relief] 9.9 ML spray,suspension 1 spry NS DAILY PRN PRN albuterol sulfate [ProAir HFA] 8.5 GM HFA aerosol inhaler 1 puff Inhalation Q4H PRN 30 Days Qty: 1 6RF allopurinol 300 mg tablet 300 mg PO DAILY Qty: 90 3RF carvedilol 12.5 mg tablet 12.5 mg PO BID Qty: 180 3RF Rx Instructions: must administer with a meal/food atorvastatin 10 mg tablet 10 mg PO DAILY Qty: 90 3RF metformin 500 mg tablet 500 mg PO BID Qty: 180 3RF losartan 50 mg tablet 50 mg PO DAILY Qty: 90 3RF Rx Instructions: Losartan/potassium 50mg po daily. celecoxib [Celebrex] 200 mg capsule 200 mg PO BID PRN Discharge Instructions Instructions: Chest Pain (ED) Additional Instructions: Please follow-up with your primary care physician as scheduled on Sunday. Please discuss findings of the CT scan which show a thoracic aortic aneurysm. Please return to the emergency department if you develop worsening chest pain shortness of breath exertional chest pain chest pain at rest nausea sweating or other abnormal symptoms. Please follow-up with cardiology as scheduled.
== END 2021-09-03 12:05 | disposition home or self-care (01) ==
PROVIDERS: Student in an Organized Health Care Education/Training Program; Emergency Provider Emergency Medicine; PCP Family Medicine
DX: I71.2 Thoracic aortic aneurysm, without rupture (principal); M10.9 Gout, unspecified; I10 Essential (primary) hypertension; E11.9 Type 2 diabetes mellitus without complications; Z79.84 Long term (current) use of oral hypoglycemic drugs; E78.5 Hyperlipidemia, unspecified; R06.02 Shortness of breath
CPT/HCPCS: 71275; 80053; 83690; 93005; 99285; 71046; 74174; 83880; 84484; 85025; 85610; 85730; 93010; 99284; J3490

== ENCOUNTER → 2021-09-22 00:13 | Outpatient (CLI) | payer MEDICARE, SELFPAY ==
--- NOTE | 2021-09-22 07:15 | DI.NM_ITS ---
APPROVED REPORT Exam: Exercise Treadmill Patient Location: Out-Patient Room/Bed: Stress Nurse: Jackelyn Lester RN Ordering Provider:BOYD STEWART, Contact Number: [phone] BMI: 36.53 Baseline Rhythm: Sinus Rhythm Comment: Incomplete LBBB Indications: Left sided chest pain. Medical History Medical History: Thoracic aoritic aneurysm. DM. HLD. HTN. PILLO. Obesity. Asthma. Habitual ETOH use. Fa tty liver. Cirrhosis. Cardiac Medications: Carvedilol. Atorvastatin. Metformin. Losartan. Nitroglycerin. Allergies: Amoxicillin. Omeprazole. Cardiac Risk Factors: HTN. DM. HLD. Asthma. Obesity. Previous Cardiac Procedures: None Pretest Chest Pain Characteristics: None Exercise History: Sedentary Physical Disabilities: none Lung Sounds: Clear throughout to auscultation. Heart Sounds: Regular Stress Test Details Test: Exercise stress testing was performed using a Prieto protocol. Nuclear Acquisition: Rest Tc-99m/Stress Tc-99m 1 day Rest Isotope: Tc-99m Sestamibi. Dose: 11.5 Date: 09/22/2021 Injection Time: 0930 Stress Isotope: Tc-99m Sestamibi. Dose: 37.0 Date: 09/22/2021 Injection Time: 1120 HR Resting HR Supine: 68 bpm Max Heart Rate (APMHR): 144.461343 bpm Resting HR Standin bpm Target HR (85% APMHR): 122.573732 bpm Max HR Achieved: 138 bpm % of APMHR: 95.83 Recovery HR: 80 bpm HR response to stress: Normal HR response to stress Comment: Pt last took Carvedilol on 09/20/21 in the AM. BP Resting BP Supine: 162/70 mmHg Resting BP Standin/68 mmHg Max BP: 232/82 mmHg Recovery BP: 162/78 mmHg BP response to stress: Abnormal hypertensive response to stress. ECG Resting ECG: Sinus Rhythm Ectopy: None Comment: Incomplete LBBB. Stress ECG: Sinus Tachycardia ST Change: No significant ST segment changes noted Arrhythmia: VPC's Recovery ECG: Sinus Rhythm Recovery ST Change: No significant ST segment changes noted Recovery Arrhythmia: None Comment: Incomplete LBBB. Clinical Reason for Termination: Fatigue, Dyspnea Stress Symptoms: Dyspnea, General Fatigue Exercise duration: 7 min30 sec Highest Stage Reached: Stage 3: 3.4 mph at 14% grade. Exercise capacity: 9.34 METs Scale: Sedentary Angina Score: None Rate Pressure Product: [id number] Stress ECG Conclusion 1. Resting electrocardiogram showed an interventricular conduction delay like an incomplete left bund le branch block 2. Patient exercised on Prieto protocol and completed a workload of 9.34 METS 3. Hypertensive blood pressure response to exercise. Normal blood pressure response to exercise. Th e patient achieved 95% of predicted heart rate for age 4. The electrocardiographic portion of the test was negative for myocardial ischemia 5. PVCs were seen 6. See MPI report Stress Test Summary STAGE Time (mins) Speed (mph) Grade (%) HR BP SpO2 SYMPTOMS METS Supine 68 162/70 Standing 72 152/68 1 3 1.7 10 99 188/78 4.5 2 6 2.5 12 119 194/90 Mild SOB 7 1 min recovery 111 224/88 SOB subsided. 3 min recovery 81 232/82 6 min recovery 76 180/80 9 min recovery 80 162/78 MPI Conclusion Normal myocardial perfusion without evidence of ischemia or prior infarction EF is measured at 51%, wall motion is normal Radiologist Interpretation Radiologist Interpretation by: Torin Parr MD Interpretation Date/Time: 09/22/2021 21:27:15
== END ==
PROVIDERS: PCP Family Medicine; Visit Provider Family Medicine
DX: R07.9 Chest pain, unspecified (principal)
CPT/HCPCS: 78452; 93016; 93018; 93017

== ENCOUNTER 2022-01-19 00:44 | Outpatient (CLI) | payer MEDICARE, SELFPAY ==
--- NOTE | 2022-01-19 07:00 | DI.CT_ITS ---
Exam(s) CT ABDOMEN PELVIS WO EXAM: CT ABDOMEN PELVIS WO CLINICAL HISTORY: Non-specific, recurrent RLQ abdominal pain,rt flank pain, r10.9. TECHNIQUE: Imaging Protocol: Axial computed tomography images with coronal and sagittal reformatted images were created and reviewed. COMPARISON: CT CT THORAX ABD/PEL CTA from 09/03/2021 FINDINGS: ABDOMEN: Lung Bases: Normal where visualized. Liver: Normal density. No measurable mass. The liver measures 19.6 cm long. Gallbladder and biliary tract: No radiodense calculus or biliary ductal dilation. Pancreas: Normal density, no abnormal calcifications or inflammatory process. Spleen: Normal. Kidneys: Normal size, contour and axis.No radiodense stones or obstructive uropathy. There are parape lvic renal cysts. Adrenal glands: No mass is seen. Lymph nodes: Within normal limits. Abdominal Aorta: Abdominal portion non-dilated. Atherosclerosis is present. PELVIS: Bladder:Symmetric distention, no gross wall thickening. Bowel: No obstruction or bowel wall thickening. Appendix is unremarkable. There is colonic diverticu losis, but no evidence of acute diverticulitis. Peritoneal cavity: No ascites, collection or mesenteric inflammatory response. No free air. Reproductive organs: Mildly enlarged prostate gland. Bones: Within normal limits. Soft Tissues: There is a moderate size fat containing umbilical hernia. There are fat containing bila teral inguinal hernias. IMPRESSION: 1. No evidence of nephrolithiasis or hydronephrosis. 2. Mild hepatomegaly. 3. Colonic diverticulosis but no evidence of acute diverticulitis. 4. No acute abdominal pelvic process. 5. Moderate size fat containing umbilical hernia and bilateral fat containing inguinal hernias. RADIATION DOSE DELIVERED: 1,286.13mGy.cm Total DLP DATA REPOSITORY: All CT scans at this facility are submitted to the National Radiology Data Registry (NRDR) Dose Index Registry (DIR) with the [employer] (ACR). RADIATION OPTIMIZATION: All CT scans at this facility use at least one of these dose optimization te chniques: automated exposure control; mA and/or kV adjustment per patient size (includes targeted exa ms where dose is matched to clinical indication); or iterative reconstruction.
== END 2022-01-19 01:04 ==
LOC: DI 00:44
PROVIDERS: PCP Family Medicine; Visit Provider Family Medicine
DX: K57.30 Diverticulosis of large intestine without perforation or abscess without bleeding (principal); R16.0 Hepatomegaly, not elsewhere classified; K42.9 Umbilical hernia without obstruction or gangrene; K40.20 Bilateral inguinal hernia, without obstruction or gangrene, not specified as recurrent
CPT/HCPCS: 74176

== ENCOUNTER 2022-03-31 11:07 | Day surgery (SDC) | payer MEDICARE, SELFPAY ==
--- NOTE | 2022-03-31 11:09 | W.ANESPRE ---
General Info Date of Service Date Performed: 03/31/22 Height: 5 ft 11 in Weight: 116.21 kg Body Mass Index (BMI): 35.7 Surgical Procedure: Operation Date: 03/31/22 12:55 Proposed Procedure Side Surgeon p Cataract Extraction with IOL Implant Left Dirk Wallace MD Meds Allergies and Home Medications Allergies Allergy/AdvReac Type Severity Reaction Status Date / Time amoxicillin [Amoxicillin] AdvReac Intermediate thrush Verified 03/31/22 11:43 omeprazole AdvReac Mild abdominal Verified 03/31/22 11:43 pain Home Medication Medication Instructions Recorded cetirizine 10 mg tablet (Zyrtec) 10 mg PO DAILY 02/21/13 fluticasone propionate 50 1 spry NS DAILY PRN PRN 02/17/15 mcg/actuation nasal spray,suspension (Flonase Allergy Relief) albuterol sulfate 90 mcg/actuation 1 puff inhalation Q4H PRN 30 days 08/21/17 aerosol inhaler (ProAir HFA) ##1 nitroglycerin 0.4 mg sublingual 0.4 mg sublingual Q5M PRN chest 09/05/21 tablet pain #20 tabs allopurinol 300 mg tablet See Rx Instructions .Route 11/14/21 .COMPLEX #90 tabs carvedilol 12.5 mg tablet See Rx Instructions .Route 11/14/21 .COMPLEX #180 tabs celecoxib 200 mg capsule (Celebrex) 200 mg PO BID PRN pain #60 caps 12/19/21 atorvastatin 10 mg tablet 10 mg PO DAILY #90 tabs 03/02/22 metformin 500 mg tablet 500 mg PO BID #180 tabs 03/02/22 clotrimazole-betamethasone 1 1 applic topical BID PRN 03/09/22 %-0.05 % topical cream irritation #45 grams losartan 100 mg tablet 100 mg PO DAILY #90 tabs 03/09/22 Current Visit Medications: Current Medications Generic Name Dose Route Start Last Admin Trade Name Freq PRN Reason Stop Dose Admin Acetaminophen 1,000 mg 03/31/22 06:00 Acetaminophen 500 Mg Tab PO Q4H PRN PRN Miscellaneous Medication 0 ml 03/31/22 06:00 Tropicam./Phenyleph. (1/2.5%) 5 Ml Btl OS DIRECTED MAHI Miscellaneous Medication 0 ml 03/31/22 06:00 Prednisolone 1%, Moxifloxacin 0.5%, Nepafenac 0.1% 5ml Btl OS DIRECTED [facility] Tetracaine HCl 0 ml 03/31/22 06:00 Tetracaine 0.5% 4 Ml Btl OS DIRECTED [facility] PFSH Active Problems Active Problems: Problem Status Onset Code Dyspnea on exertion R06.09 Pre-op evaluation Z01.818 Intertrigo ~11/2021 L30.4 Balanitis ~11/2021 N48.1 Right flank pain R10.9 Functional diarrhea K59.1 Cataracts, bilateral H26.9 Lumbar spondylosis M47.816 Conductive hearing loss, external ear H90.2 Impacted cerumen, bilateral H61.23 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 Environmental allergies Z91.09 Habitual alcohol use Z72.89 Diabetes mellitus E11.9 Lactose intolerance E73.9 Colonic polyp K63.5 Degenerative joint disease of left hip M16.12 Left hip impingement syndrome M25.852 Bursitis of left shoulder ~02/2019 M75.52 Bursitis of right shoulder ~02/2019 M75.51 Renal cyst N28.1 Type 2 diabetes mellitus without complications E11.9 Portal hypertension K76.6 Cirrhosis of liver without ascites K74.60 Other and unspecified hyperlipidemia 09/05/12 E78.5 Obstructive sleep apnea 10/22/13 G47.33 Obesity, unspecified 02/20/11 E66.9 Gout, unspecified 09/05/12 M10.9 Fatty liver 12/09/14 K76.0 Essential hypertension 12/31/12 I10 Elev transaminase/LDH 02/20/11 R74.0 Chronic rhinitis 02/20/11 J31.0 Asthma 10/01/13 J45.909 Medical History Medical History Chronic back pain Hypercholesterolemia Surgical History Surgical History (Updated 03/31/22 @ 11:43 by Alyx Costello RN) 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 History of back surgery patient denies having back surgery History of surgery repair bone under eye Tobacco Smoking/Tobacco Use Status: Never Alcohol Alcohol Intake: current Alcohol intake frequency: 0-2 drinks per day Alcohol type: wine Substance Use Substance use: Never Substance use type: does not use Vital Signs and Lab Results Lab Results Blood Type / Crossmatch: No Data to Display Complete Blood Count: No Data to Display Complete Metabolic Panel: No Data to Display Liver Function Panel: No Data to Display Coagulation Panel: No Data to Display Cardiac Panel: No Data to Display Arterial Blood Gas: No Data to Display Venous Blood Gas: No Data to Display Pancreas Panel: No Data to Display Thyroid Panel: No Data to Display Infectious Disease: No Data to Display Blood Cultures: No Data to Display Toxicology Panel: No Data to Display Imaging and Studies Imaging and Studies Study information below may be from another EMR and interpreted by another provider. Please see original notes in EMR for more complete details. EKG Summary: EKG PATIENT NAME: Blake oClby #: [id number] ORDERING PROVIDER: Ajit Dowell #: [id number] PRIMARY CARE PROVIDER:YANDEL SOSA DO DATE/TIME OF SERVICE: 09/03/21738 : 1945PERFORMING LOCATION: ER APPROVED REPORT Exam: Resting ECG Reason for Exam: chest pain Patient Location: E HR:71 bpm ECG Measurements Heart Rate 71 AXIS IN 229 P 9 QRSd 118 QRS -37 QT 407 T11 QTc 443 Conclusion Sinus rhythm...normal P axis, V-rate 60- 99 Prolonged IN interval...IN >220, V-rate 50- 90 Incomplete left bundle branch block...QRSd>110mS, terminal axis(-90,-1) PHysician: no stemi, unchanged from prior ekg on 1216 <Electronically signed by AJIT DOWELL DO in OV> E-Sign Date: 09/03/21 E-Sign Time: 745 Stress Test Summary: Patient Name: Blake Colby #: [id number]: DI Ordering Provider: Yandel Sosa DOAccount #: [id number]: REG CLI Primary Care Provider: Yandel Sosa of Exam: 09/22/21Sex: M Admission Date: 09/22/21 : 1945 Age: 76 APPROVED REPORT Exam: Exercise Treadmill Patient Location: Out-Patient Room/Bed: Stress Nurse: Jackelyn Lester RN Ordering Provider:YANDEL SOSA, Contact Number: [phone] BMI: 36.53 Baseline Rhythm: Sinus Rhythm Comment: Incomplete LBBB Indications: Left sided chest pain. Medical History Medical History: Thoracic aoritic aneurysm. DM. HLD. HTN. PILLO. Obesity. Asthma. Habitual ETOH use. Fatty liver. Cirrhosis. Cardiac Medications: Carvedilol. Atorvastatin. Metformin. Losartan. Nitroglycerin. Allergies: Amoxicillin. Omeprazole. Cardiac Risk Factors: HTN. DM. HLD. Asthma. Obesity. Previous Cardiac Procedures: None Pretest Chest Pain Characteristics: None Exercise History: Sedentary Physical Disabilities: none Lung Sounds: Clear throughout to auscultation. Heart Sounds: Regular Stress Test Details Test: Exercise stress testing was performed using a Prieto protocol. Nuclear Acquisition: Rest Tc-99m/Stress Tc-99m 1 day Rest Isotope: Tc-99m Sestamibi. Dose: 11.5 Date: 09/22/2021 Injection Time: 0930 Stress Isotope: Tc-99m Sestamibi. Dose: 37.0 Date: 09/22/2021 Injection Time: 1120 HR Resting HR Supine: 68 bpmMax Heart Rate (APMHR): 144.190408 bpm Resting HR Standin bpmTarget HR (85% APMHR): 122.630879 bpm Max HR Achieved: 138 bpm % of APMHR: 95.83 Recovery HR: 80 bpm HR response to stress: Normal HR response to stress Comment: Pt last took Carvedilol on 09/20/21 in the AM. BP Resting BP Supine: 162/70 mmHg Resting BP Standin/68 mmHg Max BP: 232/82 mmHg Recovery BP: 162/78 mmHg BP response to stress: Abnormal hypertensive response to stress. ECG Resting ECG: Sinus Rhythm Ectopy: None Comment: Incomplete LBBB. Stress ECG: Sinus Tachycardia ST Change: No significant ST segment changes noted Arrhythmia: VPC's Recovery ECG: Sinus Rhythm Recovery ST Change: No significant ST segment changes noted Recovery Arrhythmia: None Comment: Incomplete LBBB. Clinical Reason for Termination: Fatigue, Dyspnea Stress Symptoms: Dyspnea, General Fatigue Exercise duration: 7 min30 sec Highest Stage Reached: Stage 3: 3.4 mph at 14% grade. Exercise capacity: 9.34 METs Scale: Sedentary Angina Score: None Rate Pressure Product: 82533 Stress ECG Conclusion 1. Resting electrocardiogram showed an interventricular conduction delay like an incomplete left bundle branch block 2. Patient exercised on Prieto protocol and completed a workload of 9.34 METS 3. Hypertensive blood pressure response to exercise. Normal blood pressure response to exercise. The patient achieved 95% of predicted heart rate for age 4. The electrocardiographic portion of the test was negative for myocardial ischemia 5. PVCs were seen 6. See MPI report Stress Test Summary STAGETime (mins)Speed (mph)Grade (%)[id number] Rwwiil18084/70 Equobeci50681/68 131.58662790/784.5 262.985739605/90Mild SOB7 1 min [id number]/88SOB subsided. 3 min xhniayyl55509/82 6 min jopgpyni19123/80 9 min recovery 70725/78 MPI Conclusion Normal myocardial perfusion without evidence of ischemia or prior infarction EF is measured at 51%, wall motion is normal Radiologist Interpretation Radiologist Interpretation by: Torin Parr MD Interpretation Date/Time: 09/22/2021 21:27:15 Pulmonary Function Summary: Pulmonary Function Test PATIENT NAME: BLAKE COLBY AUNIT #: [id number] ADMITTING PROVIDER: STEFANY BARNES, SHAKEELAACCOUNT #: [id number] PRIMARY CARE PROVIDER:KAN MARTINEZ MD DATE OF ADMIT: 10/14/13 : 1945 [facility] Pulmonary Function Test Patient: Blake Colby Date: 10/14/2013 Provider: Kan Martinez Tech: EM MR# [id number] Age: 68 : 1945 Height: 71.00 in Weight: 265.00 lbs Sex Male Diagnosis: Cough and allergies a month ago No smokng hx Pulmonary Medications: None Post Test Comments: EFFORT: Good patient effort and cooperation. BRONCHODILATOR: Albuterol inhaler, 2 puffs, via spacer BREATH SOUNDS: Clear and equal with good aeration bilaterally and had a slight increase in aeration following the bronchodilator. Patient noticed no effect after the bronchodilator. Anesthesia Assessment and Plan Anesthesia History Personal History: No History of Anesthesia Complications Family History: No Family History of Anesthesia Complications Exercise Tolerance Exercise Tolerance: Metabolic Equivalents>4 Pertinent Negatives Pertinent Negatives: No History of CVA/TIA Cardiac & Pulmonary Exam Cardiac Exam: Normal S1/S2 Heart Sounds Pulmonary Exam: Clear Bilateral Breath Sounds Implantable Cardiac Device Does patient have a Pacemaker or an ICD?: No Airway Exam Known Difficult Airway: No Mallampati Class: 2 Mouth Opening: Normal (> 3cm) Thyromental Distance: Greater than 3 cm Neck Range of Motion: Full ROM Neck Circumference: Normal Teeth Condition: Normal Dentition ASA Classification ASA Score: ASA 3 Emergency Case?: No NPO Status NPO Status: NPO Clears >2 hours, Solids >8 hours Anesthesia Plan Resuscitation Status: Full Code Anesthesia Technique: MAC Anesthesia Airway Planned: Natural Airway Monitors Used: Standard Monitors
[2022-03-31 11:33] VITALS: BP 155/63; PULSE 68; RESP 16; TEMP 36.3; O2SAT 97
[2022-03-31 11:40] VITALS: BP 155/63; PULSE 68; RESP 16; TEMP 36.3; O2SAT 97
[2022-03-31] MEDS: Tropicam./Phenyleph. (1/2.5%) 5 ML BTL OS ×3 (11:47→11:57)
[2022-03-31 12:53] VITALS: BMI 35.7
[2022-03-31] MEDS: Tetracaine 0.5% 4 ML BTL OS (13:18)
[2022-03-31] MEDS: Triamcinolone 40 MG/ML VIAL (13:19)
[2022-03-31] MEDS: Balanced Salt Soln.-PLUS 500 ML BAG (13:19)
[2022-03-31] MEDS: Duovisc Viscoelastic System EACH 1 EACH (13:20)
[2022-03-31] MEDS: Lidocaine 2% Jelly 6 ML SYR (13:21)
[2022-03-31] MEDS: Povidone-Iodine Ophth 30 ML BTL (13:22)
[2022-03-31 13:41] VITALS: BP 137/64; PULSE 65; RESP 16; TEMP 36.5; O2SAT 96
--- NOTE | 2022-03-31 13:44 | W.PM.DSUDISC ---
Date of service: 03/31/22 Time of Service: 13:45 Discharge Plan Disposition Patient Disposition: Home Discharge Details Attending Provider: Dirk Wallace Primary Care Provider: Yandel Sosa Home Meds and New Rx's Prescriptions: No Action nitroglycerin 0.4 mg tablet, sublingual 0.4 mg sublingual Q5M PRN (Reason: chest pain) Qty: 20 0RF Rx Instructions: do not exceed 3 doses per episode losartan 100 mg tablet 100 mg PO DAILY Qty: 90 3RF clotrimazole-betamethasone 1-0.05 % cream 1 applic topical BID PRN (Reason: irritation) Qty: 45 3RF Rx Instructions: as directed cetirizine [Zyrtec] 10 MG tablet 10 mg PO DAILY fluticasone propionate [Flonase Allergy Relief] 9.9 ML spray,suspension 1 spry NS DAILY PRN PRN albuterol sulfate [ProAir HFA] 8.5 GM HFA aerosol inhaler 1 puff Inhalation Q4H PRN 30 Days Qty: 1 6RF allopurinol 300 mg tablet See Rx Instructions .ROUTE .COMPLEX Qty: 90 0RF Dose Instruction: TAKE 1 TABLET EVERY DAY Rx Instructions: TAKE 1 TABLET EVERY DAY carvedilol 12.5 mg tablet See Rx Instructions .ROUTE .COMPLEX Qty: 180 0RF Dose Instruction: TAKE 1 TABLET TWICE DAILY WITH FOOD Patient Comments: Per patient once a day Rx Instructions: TAKE 1 TABLET TWICE DAILY WITH FOOD celecoxib [Celebrex] 200 mg capsule 200 mg PO BID PRN (Reason: pain) Qty: 60 3RF metformin 500 mg tablet 500 mg PO BID Qty: 180 3RF atorvastatin 10 mg tablet 10 mg PO DAILY Qty: 90 3RF Discharge Instructions Stand Alone Forms: Post-op Topical Cataract, [place] [place] ([facility]) Discharge Orders Discharge Orders: Discharge Order (Routine); Ordered 03/31/22 Ordered By: Dirk Wallace DS: Diagnosis Discharge Diagnosis (1) Posterior subcapsular age-related cataract of left eye: Status: Resolved (2) Nuclear age-related cataract, left eye: Status: Resolved
--- NOTE | 2022-03-31 13:47 | W.ANESPOSTOP ---
Postoperative Evaluation Date, Time and Location Date Performed: 03/31/22 Time Performed: 13:47 Patient Location: Day Surgery Unit Vital Signs Most Recent Imported Vital Signs: Most Recent Vital Signs Temp Pulse Resp BP Pulse Ox 36.3 C L 68 16 155/63 H 97 03/31/22 11:40 03/31/22 11:40 03/31/22 11:40 03/31/22 11:40 03/31/22 11:40 Pain Score Most Recent Pain Score: Most Recent Pain Score Pain Level 0 03/31/22 11:40 Assessment Mental Status: Awake (Alert & Oriented to Patient Baseline) Airway and Respiratory Function: Patent airway with normal (patient baseline) respiratory exam Cardiovascular Function: Hemodynamically Stable Hydration Status: Adequately Hydrated Nausea & Vomiting: No Nausea or Vomiting Pain: Pt. Denies Any Pain Peripheral Nerve Block: Other (Local by Dr. Wallace)
--- NOTE | 2022-03-31 13:48 | ROE_ITS ---
Date of service: 03/31/22 Time of Service: 13:48 Operative Note Operative Note DATE OF PROCEDURE: 03/31/22 PRE-OP DIAGNOSIS: Nuclear/posterior subcapsular cataract, left eye POST-OP DIAGNOSIS: same PROCEDURE: Cataract extraction using phacoemulsification with intraocular lens implant, left eye SURGEON: Dirk Wallace ANESTHESIA TYPE: Local By Surgeon and MAC Refer to Anesthesia Record PATHOLOGY: none sent COMPLICATIONS: None Patient was transported to: same day Patient's condition: stable Implants: Obdulio Clareon [id number] Indications: Progressive decreased vision due to cataract, left eye Procedure Description: CATARACT SURGERY OPERATIVE REPORT PREOPERATIVE DIAGNOSIS: Nuclear/posterior subcapsular cataract, left eye POSTOPERATIVE DIAGNOSIS: Same OPERATION: Cataract extraction using phacoemulsification with posterior chamber intraocular lens implant, left eye. IOL: IOL X Ray Service Technician/Model: Obdulio Clareon [id number] IOL Power: + 23.0 diopters IOL Serial Number: [id number] Optic Diameter: 6.0mm Haptic/Overall Diameter: 13.0mm PHACO INFO: ObdulioOneNeck IT Servicesurion Vision System with OZil and Active Fluidics Cumulative Dispersed Energy (CDE): 9.66 seconds SURGEON: Dirk Wallace MD, FRANCOIS ANESTHESIA: Monitored Anesthesia Care (MAC), with local sub-tenon's anesthetic infiltration COMPLICATIONS: None SPECIMENS: None INDICATIONS FOR PROCEDURE: The patient is a 77-year-old male with history of diminished visual acuity in his left eye secondary to the development of nuclear/posterior subcapsular cataract in the left eye. The option of cataract surgery was offered to the patient and he felt he was symptomatic enough that he wished to proceed. PROCEDURE: The correct surgical eye was identified and marked as the left eye and the pupil was dilated in the preoperative area using mydriatics and cycloplegics. The dilated pupil size was 7.0 mm. The patient elected to proceed without oral sedation. The patient was brought to the operating room where cardiopulmonary monitoring was instituted and surgical time-out was performed, confirming the correct operative eye and IOL power. Topical anesthesia was administered and ophthalmic povidone-iodine 5% was instilled into the conjunctival fornices. Lidocaine gel was applied to the cornea and the fran-ocular area was prepped with Betadine 10% solution and draped in the usual sterile fashion for intraocular surgery, including an aperture drape. A Tegaderm transparent film dressing was cut in half and used to cover the lashes and lid margins. Care was taken to sequester the lashes and lid margins under the Tegaderm dressing. A lid speculum was placed between the lids of the operative eye and the Obdulio LuxOR Revalia operating microscope was maneuvered into position. Radha scissors were then used to make a conjunctival buttonhole approximately 6mm posterior to the limbus in the inferonasal quadrant. Blunt dissection was carried out to expose bare sclera, and a blunt-tipped sub-tenon?s anesthesia cannula was introduced and passed posteriorly along the globe where non- preserved plain lidocaine was injected into posterior sub-Tenon?s space. A sideport knife was used to make a paracentesis port superior/superiortemporally. Intraocular phenylephrine/lidocaine was injected into the anterior chamber. The anterior chamber was then filled with viscoelastic. A keratome knife was used construct a two-plane near-clear corneal tunnel extending 2.0mm into clear cornea in the temporal position. . A flap was raised on the anterior capsule and capsulorhexis forceps were used to complete a continuous curvilinear capsulorhexis of 5.5 mm. Moderate zonular laxity was noted. Balanced salt solution was then used to perform cortical cleaving hydrodissection and nuclear hydrodelineation until the lens could be freely rotated within the capsular bag. The lens nucleus was then disassembled and removed within the capsular bag and iris plane using phacoemulsification. Residual cortical material was removed using the 45-degree angled silicone I/A tip with 0.3mm port. The posterior capsule was carefully polished to remove as much residual lens epithelial cells as safely possible. The capsular bag was then inflated and the anterior chamber deepened with viscoelastic. The lens implant described above was inserted into the capsular bag using the Obdulio Autonome Injector. A Kuglen hook was used to dial the IOL into position. Residual viscoelastic was then removed first from posterior to the IOL, then from the anterior chamber using the I/A handpiece. The lens implant was noted to center nicely within the capsular bag. The incisions were stromally hydrated, and the anterior chamber was reformed using BSS. Then 0.5cc of moxifloxacin 1.0mg/ml were injected into the capsular bag and anterior chamber. The incisions were checked with a Weck spear and found to be secure. Several drops of ophthalmic povidone-iodine 5% were then applied to the eye followed by two drops of Imprimis combination prednisolone/moxifloxacin/nepafenac solution. The drapes were removed and a clear plastic protective eye shield was placed over the eye. The patient was then returned to Same Day Surgery in stable condition.
== END 2022-03-31 14:01 | disposition home or self-care (01) ==
LOC: SUR 11:07
PROVIDERS: PCP Family Medicine; Visit Provider Ophthalmology
PROC: (CPT 66984; principal; 2022-03-31 12:45)
DX: H25.042 Posterior subcapsular polar age-related cataract, left eye (principal); E11.9 Type 2 diabetes mellitus without complications
CPT/HCPCS: 66984; V2632

== ENCOUNTER 2022-04-21 10:26 | Day surgery (SDC) | payer MEDICARE, SELFPAY ==
[2022-04-21 10:40] VITALS: BP 141/65; PULSE 65; RESP 16; TEMP 36.3; O2SAT 98
--- NOTE | 2022-04-21 11:18 | ANES.PREOP_ITS ---
General Info Date of Service Date Performed: 04/21/22 Height: 5 ft 11 in Weight: 114 kg Body Mass Index (BMI): 35.0 Surgical Procedure: Operation Date: 04/21/22 12:10 Proposed Procedure Side Surgeon p Cataract Extraction with IOL Implant Right Dirk Wallace MD Meds Allergies and Home Medications Allergies Allergy/AdvReac Type Severity Reaction Status Date / Time amoxicillin [Amoxicillin] AdvReac Intermediate thrush Verified 04/21/22 11:10 omeprazole AdvReac Mild abdominal Verified 04/21/22 11:10 pain Home Medication Medication Instructions Recorded cetirizine 10 mg tablet (Zyrtec) 10 mg PO DAILY 02/21/13 fluticasone propionate 50 1 spry NS DAILY PRN PRN 02/17/15 mcg/actuation nasal spray,suspension (Flonase Allergy Relief) albuterol sulfate 90 mcg/actuation 1 puff inhalation Q4H PRN 30 days 08/21/17 aerosol inhaler (ProAir HFA) ##1 nitroglycerin 0.4 mg sublingual 0.4 mg sublingual Q5M PRN chest 09/05/21 tablet pain #20 tabs allopurinol 300 mg tablet See Rx Instructions .Route 11/14/21 .COMPLEX #90 tabs carvedilol 12.5 mg tablet See Rx Instructions .Route 11/14/21 .COMPLEX #180 tabs celecoxib 200 mg capsule (Celebrex) 200 mg PO BID PRN pain #60 caps 12/19/21 atorvastatin 10 mg tablet 10 mg PO DAILY #90 tabs 03/02/22 metformin 500 mg tablet 500 mg PO BID #180 tabs 03/02/22 clotrimazole-betamethasone 1 1 applic topical BID PRN 03/09/22 %-0.05 % topical cream irritation #45 grams losartan 100 mg tablet 100 mg PO HS 04/20/22 Current Visit Medications: Current Medications Generic Name Dose Route Start Last Admin Trade Name Freq PRN Reason Stop Dose Admin Acetaminophen 1,000 mg 04/21/22 06:00 Acetaminophen 500 Mg Tab PO Q4H PRN PRN Miscellaneous Medication 0 ml 04/21/22 06:00 Tropicam./Phenyleph. (1/2.5%) 5 Ml Btl OD DIRECTED MAHI Miscellaneous Medication 0 ml 04/21/22 06:00 Prednisolone 1%, Moxifloxacin 0.5%, Nepafenac 0.1% 5ml Btl OD DIRECTED [facility] Tetracaine HCl 0 ml 04/21/22 06:00 Tetracaine 0.5% 4 Ml Btl OD DIRECTED [facility] Active Problems Active Problems: Problem Status Onset Code Asthma 10/01/13 J45.909 Chronic rhinitis 02/20/11 J31.0 Elev transaminase/LDH 02/20/11 R74.0 Essential hypertension 12/31/12 I10 Fatty liver 12/09/14 K76.0 Gout, unspecified 09/05/12 M10.9 Obesity, unspecified 02/20/11 E66.9 Obstructive sleep apnea 10/22/13 G47.33 Other and unspecified hyperlipidemia 09/05/12 E78.5 Cirrhosis of liver without ascites K74.60 Portal hypertension K76.6 Type 2 diabetes mellitus without complications E11.9 Renal cyst N28.1 Bursitis of right shoulder ~02/2019 M75.51 Bursitis of left shoulder ~02/2019 M75.52 Left hip impingement syndrome M25.852 Degenerative joint disease of left hip M16.12 Colonic polyp K63.5 Lactose intolerance E73.9 Diabetes mellitus E11.9 Habitual alcohol use Z72.89 Environmental allergies Z91.09 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 Impacted cerumen, bilateral H61.23 Conductive hearing loss, external ear H90.2 Lumbar spondylosis M47.816 Cataracts, bilateral H26.9 Functional diarrhea K59.1 Right flank pain R10.9 Balanitis ~11/2021 N48.1 Intertrigo ~11/2021 L30.4 Pre-op evaluation Z01.818 Dyspnea on exertion R06.09 Nuclear age-related cataract, left eye H25.12 Posterior subcapsular age-related cataract of left eye H25.042 Nuclear sclerotic cataract of right eye H25.11 Posterior subcapsular age-related cataract, right eye H25.041 Medical History Medical History Chronic back pain Hypercholesterolemia Surgical History Surgical History (Updated 04/21/22 @ 11:10 by Sade Parra) 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 History of back surgery patient denies having back surgery History of surgery repair bone under eye Hx of cataract removal with insertion of prosthetic lens Tobacco Smoking/Tobacco Use Status: Never Alcohol Alcohol Intake: current Alcohol intake frequency: 0-2 drinks per day Alcohol type: wine Substance Use Substance use: Never Substance use type: does not use Vital Signs and Lab Results Vital Signs Most Recent Vital Signs in EMR: Most Recent Vital Signs Temp Pulse Resp BP Pulse Ox 36.3 C L 65 16 141/65 H 98 04/21/22 10:40 04/21/22 10:40 04/21/22 10:40 04/21/22 10:40 04/21/22 10:40 Lab Results Blood Type / Crossmatch: No Data to Display Complete Blood Count: White Blood Count 6.5 10^3/uL (4.4-10.8) 04/06/22 10:00 Red Blood Count 4.96 10^6/uL 04/06/22 10:00 Hemoglobin 15.5 g/dL 04/06/22 10:00 Hematocrit 46.0 % 04/06/22 10:00 Complete Metabolic Panel: Sodium 140 (120-150) 04/06/22 10:00 Potassium 4.8 mmol/L (3.5-5.1) 04/06/22 10:00 Chloride 103 mmol/L 04/06/22 10:00 Carbon Dioxide 28 mmol/L 04/06/22 10:00 BUN 18 mg/dL (7-18) 04/06/22 10:00 Creatinine 0.88 mg/dL 04/06/22 10:00 Calcium 9.8 mg/dL 04/06/22 10:00 Albumin 4.9 g/dL 04/06/22 10:00 Glucose 134 mg/dL 04/06/22 10:00 Liver Function Panel: Alanine Aminotransferase (ALT/SGPT) 35 U/L 04/06/22 10: 00 Aspartate Amino Transf (AST/SGOT) 26 U/L 04/06/22 10:00 Coagulation Panel: INR International Normalized Ratio 1.1 (0.9-1.1) 04/06/22 10:0 0 Cardiac Panel: No Data to Display Arterial Blood Gas: No Data to Display Venous Blood Gas: No Data to Display Pancreas Panel: No Data to Display Thyroid Panel: No Data to Display Infectious Disease: No Data to Display Blood Cultures: No Data to Display Toxicology Panel: No Data to Display Imaging and Studies Imaging and Studies Study information below may be from another EMR and interpreted by another provider. Please see original notes in EMR for more complete details. EKG Summary: EKG PATIENT NAME: Blake Colby #: [id number] ORDERING PROVIDER: Ajit Dowell #: [id number] PRIMARY CARE PROVIDER:YANDEL SOSA DO DATE/TIME OF SERVICE: 09/03/21 0739 : 1945PERFORMING LOCATION: ER APPROVED REPORT Exam: Resting ECG Reason for Exam: chest pain Patient Location: E HR:71 bpm ECG Measurements Heart Rate 71 AXIS GA 229 P 9 QRSd 118 QRS -37 QT 407 T11 QTc 443 Conclusion Sinus rhythm...normal P axis, V-rate 60- 99 Prolonged GA interval...GA >220, V-rate 50- 90 Incomplete left bundle branch block...QRSd>110mS, terminal axis(-90,-1) PHysician: no stemi, unchanged from prior ekg on 1216 <Electronically signed by AJIT DOWELL DO in OV> E-Sign Date: 09/03/21 E-Sign Time: 0746 Stress Test Summary: Patient Name: Blake Colby #: [id number]: DI Ordering Provider: Yandel Sosa #: [id number]: REG CLI Primary Care Provider: Yandel Sosa of Exam: 09/22/21Sex: M Admission Date: 09/22/21 : 1945 Age: 76 APPROVED REPORT Exam: Exercise Treadmill Patient Location: Out-Patient Room/Bed: Stress Nurse: Jackelyn Lester RN Ordering Provider:YANDEL SOSA, Contact Number: [phone] BMI: 36.53 Baseline Rhythm: Sinus Rhythm Comment: Incomplete LBBB Indications: Left sided chest pain. Medical History Medical History: Thoracic aoritic aneurysm. DM. HLD. HTN. PILLO. Obesity. Asthma. Habitual ETOH use. Fatty liver. Cirrhosis. Cardiac Medications: Carvedilol. Atorvastatin. Metformin. Losartan. Nitroglycerin. Allergies: Amoxicillin. Omeprazole. Cardiac Risk Factors: HTN. DM. HLD. Asthma. Obesity. Previous Cardiac Procedures: None Pretest Chest Pain Characteristics: None Exercise History: Sedentary Physical Disabilities: none Lung Sounds: Clear throughout to auscultation. Heart Sounds: Regular Stress Test Details Test: Exercise stress testing was performed using a Prieto protocol. Nuclear Acquisition: Rest Tc-99m/Stress Tc-99m 1 day Rest Isotope: Tc-99m Sestamibi. Dose: 11.5 Date: 09/22/2021 Injection Time: 0930 Stress Isotope: Tc-99m Sestamibi. Dose: 37.0 Date: 09/22/2021 Injection Time: 1120 HR Resting HR Supine: 68 bpmMax Heart Rate (APMHR): 144.054763 bpm Resting HR Standin bpmTarget HR (85% APMHR): 122.295268 bpm Max HR Achieved: 138 bpm % of APMHR: 95.83 Recovery HR: 80 bpm HR response to stress: Normal HR response to stress Comment: Pt last took Carvedilol on 09/20/21 in the AM. BP Resting BP Supine: 162/70 mmHg Resting BP Standin/68 mmHg Max BP: 232/82 mmHg Recovery BP: 162/78 mmHg BP response to stress: Abnormal hypertensive response to stress. ECG Resting ECG: Sinus Rhythm Ectopy: None Comment: Incomplete LBBB. Stress ECG: Sinus Tachycardia ST Change: No significant ST segment changes noted Arrhythmia: VPC's Recovery ECG: Sinus Rhythm Recovery ST Change: No significant ST segment changes noted Recovery Arrhythmia: None Comment: Incomplete LBBB. Clinical Reason for Termination: Fatigue, Dyspnea Stress Symptoms: Dyspnea, General Fatigue Exercise duration: 7 min30 sec Highest Stage Reached: Stage 3: 3.4 mph at 14% grade. Exercise capacity: 9.34 METs Scale: Sedentary Angina Score: None Rate Pressure Product: 73888 Stress ECG Conclusion 1. Resting electrocardiogram showed an interventricular conduction delay like an incomplete left bundle branch block 2. Patient exercised on Prieto protocol and completed a workload of 9.34 METS 3. Hypertensive blood pressure response to exercise. Normal blood pressure response to exercise. The patient achieved 95% of predicted heart rate for age 4. The electrocardiographic portion of the test was negative for myocardial ischemia 5. PVCs were seen 6. See MPI report Stress Test Summary STAGETime (mins)Speed (mph)Grade (%)[id number] Qzpwoh78418/70 Qlidfczo88436/68 131.57875977/784.5 262.187411570/90Mild SOB7 1 min mlimfmsa200734/88SOB subsided. 3 min xlsfegan60198/82 6 min rvefkzjj42446/80 9 min recovery 79039/78 MPI Conclusion Normal myocardial perfusion without evidence of ischemia or prior infarction EF is measured at 51%, wall motion is normal Radiologist Interpretation Radiologist Interpretation by: Torin Parr MD Interpretation Date/Time: 09/22/2021 21:27:15 Pulmonary Function Summary: Pulmonary Function Test PATIENT NAME: BLAKE COLBY AUNIT #: [id number] ADMITTING PROVIDER: STEFANY BARNES, [facility] #: [id number] PRIMARY CARE PROVIDER:KAN MARTINEZ MD DATE OF ADMIT: 10/14/13 : 1945 [facility] Pulmonary Function Test Patient: Blake Colby Date: 10/14/2013 Provider: Kan Martinez Tech: MR# [id number] Age: 68 : 1945 Height: 71.00 in Weight: 265.00 lbs Sex Male Diagnosis: Cough and allergies a month ago No smokng hx Pulmonary Medications: None Post Test Comments: EFFORT: Good patient effort and cooperation. BRONCHODILATOR: Albuterol inhaler, 2 puffs, via spacer BREATH SOUNDS: Clear and equal with good aeration bilaterally and had a slight increase in aeration following the bronchodilator. Patient noticed no effect after the bronchodilator. Anesthesia Assessment and Plan Anesthesia History Personal History: No History of Anesthesia Complications Family History: No Family History of Anesthesia Complications Exercise Tolerance Exercise Tolerance: Metabolic Equivalents>4 Pertinent Negatives Pertinent Negatives: No Symptoms of GERD Cardiac & Pulmonary Exam Cardiac Exam: Normal S1/S2 Heart Sounds Pulmonary Exam: Clear Bilateral Breath Sounds Implantable Cardiac Device Does patient have a Pacemaker or an ICD?: No Airway Exam Known Difficult Airway: No Mallampati Class: 2 Mouth Opening: Normal (> 3cm) Thyromental Distance: Greater than 3 cm Neck Range of Motion: Full ROM Neck Circumference: Normal Teeth Condition: Normal Dentition ASA Classification ASA Score: ASA 3 Emergency Case?: No NPO Status NPO Status: NPO Clears >2 hours, Solids >8 hours Anesthesia Plan Resuscitation Status: Full Code Anesthesia Technique: MAC Anesthesia Airway Planned: Natural Airway Monitors Used: Standard Monitors
[2022-04-21] MEDS: Tropicam./Phenyleph. (1/2.5%) 5 ML BTL OD ×3 (11:19→11:27)
[2022-04-21 11:24] VITALS: BMI 35.0
[2022-04-21] MEDS: Tetracaine 0.5% 4 ML BTL OD (12:11)
[2022-04-21] MEDS: Balanced Salt Soln.-PLUS 500 ML BAG (12:11)
[2022-04-21] MEDS: Lidocaine 1% Pres-Free 5 ML VIAL (12:12)
[2022-04-21] MEDS: Duovisc Viscoelastic System EACH 1 EACH (12:12)
[2022-04-21] MEDS: Phenylephrine/Lidocaine (15/10) MG/ML 1 ML VIAL (12:13)
[2022-04-21] MEDS: Triamcinolone 40 MG/ML VIAL (12:14)
[2022-04-21] MEDS: Povidone-Iodine Ophth 30 ML BTL (12:14)
[2022-04-21 12:31] VITALS: BP 137/62; PULSE 64; RESP 16; TEMP 36.2; O2SAT 97
--- NOTE | 2022-04-21 12:32 | W.PM.DSUDISC ---
Date of service: 04/21/22 Time of Service: 12:32 Discharge Plan Disposition Patient Disposition: Home Discharge Details Attending Provider: Dirk Wallace Primary Care Provider: Yandel Sosa Home Meds and New Rx's Prescriptions: No Action nitroglycerin 0.4 mg tablet, sublingual 0.4 mg sublingual Q5M PRN (Reason: chest pain) Qty: 20 0RF Rx Instructions: do not exceed 3 doses per episode clotrimazole-betamethasone 1-0.05 % cream 1 applic topical BID PRN (Reason: irritation) Qty: 45 3RF Rx Instructions: as directed cetirizine [Zyrtec] 10 MG tablet 10 mg PO DAILY fluticasone propionate [Flonase Allergy Relief] 9.9 ML spray,suspension 1 spry NS DAILY PRN PRN albuterol sulfate [ProAir HFA] 8.5 GM HFA aerosol inhaler 1 puff Inhalation Q4H PRN 30 Days Qty: 1 6RF allopurinol 300 mg tablet See Rx Instructions .ROUTE .COMPLEX Qty: 90 0RF Dose Instruction: TAKE 1 TABLET EVERY DAY Rx Instructions: TAKE 1 TABLET EVERY DAY carvedilol 12.5 mg tablet See Rx Instructions .ROUTE .COMPLEX Qty: 180 0RF Dose Instruction: TAKE 1 TABLET TWICE DAILY WITH FOOD Patient Comments: Per patient once a day Rx Instructions: TAKE 1 TABLET TWICE DAILY WITH FOOD celecoxib [Celebrex] 200 mg capsule 200 mg PO BID PRN (Reason: pain) Qty: 60 3RF metformin 500 mg tablet 500 mg PO BID Qty: 180 3RF atorvastatin 10 mg tablet 10 mg PO DAILY Qty: 90 3RF losartan 100 mg tablet 100 mg PO HS Discharge Instructions Stand Alone Forms: Post-op Topical Cataract, [place] (DSU) Discharge Orders Discharge Orders: Discharge Order (Routine); Ordered 04/21/22 Ordered By: Dirk Wallace DS: Diagnosis Discharge Diagnosis (1) Nuclear sclerotic cataract of right eye: Status: Resolved (2) Posterior subcapsular age-related cataract, right eye: Status: Resolved
--- NOTE | 2022-04-21 12:33 | W.PM.OP ---
Date of service: 04/21/22 Time of Service: 12:33 Operative Note Operative Note DATE OF PROCEDURE: 04/21/22 PRE-OP DIAGNOSIS: Nuclear/posterior subcapsular cataract, right eye POST-OP DIAGNOSIS: same PROCEDURE: Cataract extraction using phacoemulsification with intraocular lens implant, right eye SURGEON: Dirk Wallace ANESTHESIA TYPE: Local By Surgeon and MAC Refer to Anesthesia Record ESTIMATED BLOOD LOSS: 0 PATHOLOGY: none sent COMPLICATIONS: None Patient was transported to: same day Patient's condition: stable Implants: Obdulio Clareon [id number] Indications: Progressive decreased vision due to cataract, right eye Procedure Description: CATARACT SURGERY OPERATIVE REPORT PREOPERATIVE DIAGNOSIS: Nuclear/posterior subcapsular cataract, right eye POSTOPERATIVE DIAGNOSIS: Same OPERATION: Cataract extraction using phacoemulsification with posterior chamber intraocular lens implant, right eye. IOL: IOL Envelope Sealer/Model: Obdulio Clareon [id number] IOL Power: + 22.5 diopters IOL Serial Number: [id number] Optic Diameter: 6.0mm Haptic/Overall Diameter: 13.0mm PHACO INFO: Obdulio Forward [employer]ion Vision System with OZil and Active Fluidics Cumulative Dispersed Energy (CDE): 7.09 seconds SURGEON: Dirk Wallace MD, FRANCOIS ANESTHESIA: Monitored Anesthesia Care (MAC), with local sub-tenon's anesthetic infiltration COMPLICATIONS: None SPECIMENS: None INDICATIONS FOR PROCEDURE: The patient is a 77-year-old male with history of diminished visual acuity in both eyes secondary to the development of bilateral nuclear/posterior subcapsular cataract. He is significantly symptomatic that he desires cataract surgery and attempt to improve and maximize his vision. He has already undergone cataract surgery in the left eye and is doing well postoperatively. He now presents for cataract surgery in the right eye. PROCEDURE: The correct surgical eye was identified and marked as the right eye and the pupil was dilated in the preoperative area using mydriatics and cycloplegics. The dilated pupil size was 7.0 mm. The patient elected to proceed without oral sedation. The patient was brought to the operating room where cardiopulmonary monitoring was instituted and surgical time-out was performed, confirming the correct operative eye and IOL power. Topical anesthesia was administered and ophthalmic povidone-iodine 5% was instilled into the conjunctival fornices. Lidocaine gel was applied to the cornea and the fran-ocular area was prepped with Betadine 10% solution and draped in the usual sterile fashion for intraocular surgery, including an aperture drape. A Tegaderm transparent film dressing was cut in half and used to cover the lashes and lid margins. Care was taken to sequester the lashes and lid margins under the Tegaderm dressing. A lid speculum was placed between the lids of the operative eye and the Tatiana-Eugenie operating microscope was maneuvered into position. Radha scissors were then used to make a conjunctival buttonhole approximately 6mm posterior to the limbus in the inferonasal quadrant. Blunt dissection was carried out to expose bare sclera, and a blunt-tipped sub-tenon?s anesthesia cannula was introduced and passed posteriorly along the globe where non-preserved plain lidocaine was injected into posterior sub-Tenon?s space. A sideport knife was used to make a paracentesis port inferiortemporally. Intraocular phenylephrine/lidocaine was injected into the anterior chamber. The anterior chamber was then filled with viscoelastic. A keratome knife was used to construct a two--plane near-clear corneal tunnel extending 2.0mm into clear cornea in the superiortemporal position.. A flap was raised on the anterior capsule and capsulorhexis forceps were used to complete a continuous curvilinear capsulorhexis of 5.5 mm. Balanced salt solution was then used to perform cortical cleaving hydrodissection and nuclear hydrodelineation until the lens could be freely rotated within the capsular bag. The lens nucleus was then disassembled and removed within the capsular bag and iris plane using phacoemulsification. Residual cortical material was removed using the I/A handpiece. The posterior capsule was carefully polished to remove as much residual lens epithelial cells as safely possible. The capsular bag was then inflated and the anterior chamber deepened with viscoelastic. The lens implant described above was inserted into the capsular bag using the Obdulio Autonome Injector. A Kuglen hook was used to dial the IOL into position. Residual viscoelastic was then removed first from posterior to the IOL, then from the anterior chamber using the I/A handpiece. The lens implant was noted to center nicely within the capsular bag. The incisions were stromally hydrated, and the anterior chamber was reformed using BSS. Then 0.5cc of moxifloxacin 1.0mg/ml were injected into the capsular bag and anterior chamber. The incisions were checked with a Weck spear and found to be secure. Several drops of ophthalmic povidone-iodine 5% were then applied to the eye followed by two drops of Imprimis combination prednisolone/moxifloxacin/nepafenac solution. The drapes were removed and a clear plastic protective eye shield was placed over the eye. The patient was then returned to Same Day Surgery in stable condition.
--- NOTE | 2022-04-21 14:44 | W.ANESPOSTOP ---
Postoperative Evaluation Date, Time and Location Date Performed: 04/21/22 Time Performed: 12:30 Patient Location: Day Surgery Unit Vital Signs Most Recent Imported Vital Signs: Most Recent Vital Signs Temp Pulse Resp BP Pulse Ox 36.2 C L 64 16 137/62 97 04/21/22 12:31 04/21/22 12:31 04/21/22 12:31 04/21/22 12:31 04/21/22 12:31 Pain Score Most Recent Pain Score: Most Recent Pain Score Pain Level 0 04/21/22 12:31 Assessment Mental Status: Awake (Alert & Oriented to Patient Baseline) Airway and Respiratory Function: Patent airway with normal (patient baseline) respiratory exam Cardiovascular Function: Hemodynamically Stable Hydration Status: Adequately Hydrated Nausea & Vomiting: No Nausea or Vomiting Pain: Pt. Denies Any Pain Peripheral Nerve Block: Patient did not receive a nerve block
== END 2022-04-21 12:56 | disposition home or self-care (01) ==
LOC: SUR 10:27
PROVIDERS: PCP Family Medicine; Visit Provider Ophthalmology
PROC: (CPT 66984; principal; 2022-04-21 12:00)
DX: H25.041 Posterior subcapsular polar age-related cataract, right eye (principal)
CPT/HCPCS: 66984; V2632

== ENCOUNTER 2022-05-17 01:08 | Outpatient (CLI) | payer MEDICARE, SELFPAY ==
--- NOTE | 2022-05-17 10:06 | DI.US_ITS ---
APPROVED REPORT EXAM: Comprehensive 2D, Doppler, and color-flow Echocardiogram Patient Location: Out-Patient Safety Pin Assembling Machine Operator: Manish Moran RDMS, RVT Indications: increased GUERRA Other Information Study Quality: Fair. Technically limited study due to body habitus. Conclusion Normal left ventricular wall thickness and chamber size. Ejection fraction is 55%. Wall motion is n ormal Right ventricle is not well visualized Both atria are normal in size Aortic valve is sclerotic without stenosis. There is mild aortic regurgitation Estimated right ventricular systolic pressure is normal at 18 mmHg Dilated ascending aorta measuring 4.06 cm Wall motion Left Ventricle The left ventricle is normal size. The left ventricular systolic function is normal. The left ventric ular ejection fraction is within the normal range. There is normal left ventricular wall thickness. T here is normal LV segmental wall motion. There is no ventricular septal defect visualized. LVEF is 55 %. Right Ventricle Right ventricle is not well visualized. Right ventricular systolic function could not be assessed. The RVSP is 18.1 mmHg. Atria The left atrium size is normal. The right atrium size is normal. The interatrial septum is intact wit h no evidence for an atrial septal defect. Aortic Valve Aortic valve is calcified. Number of aortic valve leaflets could not be assessed. No hemodynamically significant valvular aortic stenosis. Peak aortic valve gradient is 14.2 mmHg. Highest mean aortic va lve gradient is 1.58 mmHg. Calculated ALEJANDRA by the continuity equation is 2.28 cm2. Mild aortic regurgi tation. Mitral Valve The mitral valve is normal in structure. No evidence of mitral valve stenosis. Trivial mitral regurgi tation. Tricuspid Valve The tricuspid valve is normal in structure. There is no tricuspid valve stenosis. Trivial tricuspid r egurgitation. Pulmonic Valve The pulmonary valve is normal in structure. There is no pulmonic valvular stenosis. Trivial pulmonic regurgitation. Great Vessels Aortic root is normal in size. The pulmonary artery is normal. The ascending aorta is moderately dil ated. Aortic arch is normal in caliber. IVC is normal in size and collapses >50% with inspiration. Pericardium There is no pericardial effusion. 2D Dimensions IVSD d PLAX 0.83 cm M: 0.6-1.2 LV Vol A2C d MOD 239.5 mL LVPW d PLAX 0.85 cm M: 0.6 - 1.2 LV Vol A4C d MOD 138.4 mL LVID d PLAX 5.13 cm M: 4.2 - 5.8 LA vol/ BSA A2C s A-L 19.7 mL/m2 LVDs 3.90 cm M: 2.5 - 4.0 LA Area A2C s MOD 17.20 cm2 Ao Root d 3.78 cm M: 3.1 - 3.7 LV EF A4C MOD 51.1 % Ao Asc Diam d 4.06 cm M: 2.6 - 3.4 LV EF A2C MOD 48.4 % LV EF Teichholz 46.0 % LV EF Biplane MOD 51.3 % LVEF (Marroquin's) 51.32 % M: 52 - 72 SV 97.03 mL LV Volume 134.64 mL M: 62 - 150 SV Index 41.16 mL/m2 LV Volume Index 57.05 mL/m2 M: 34 - 74 LV Vol Biplane MOD 189.1 mL FS 23.05 % M-Mode TAPSE 2.75 cm (M/F) >1.7 LV Diastology MV E' medial 0.127 (>0.07 m/s) E/A Ratio 0.6 LV E/e MED 4.50 (<14) MV E Vmax 0.58 (0.4-1.3 m/s) MV E' lateral 0.109 (>0.1 m/s) MV A Vmax 0.90 (0.4-1.3 m/s) LV E/e LAT 5.30 (<14) MV E/A Ratio 0.63 MV E/E' medial 4.54 MV E/E' lateral 5.30 Aortic Valve LVOT Area 3.57 cm2 AoV Area Vmax 2.28 cm2 LVOT Vmax 1.20 m/s AoV Area/ BSA (Vmax) 0.97 cm2/m2 LVOT Mean Waylon. 0.93 m/s ALEJANDRA Mean Waylon. 2.11 cm2 LVOT Peak Grad 5.8 mmHg ALEJANDRA Mean Waylon. Index 0.89 cm2/m2 LVOT Mean Grad 3.8 mmHg AR DT 1014 msec LVOT VTI 0.274 m AR PHT 294 msec LVOT Diam s 2.10 cm AoV Vmax 1.88 m/s Velocity Ratio 0.64 AoV Mean Waylon. 1.58 m/s AoV Peak Grad 14.2 mmHg LVOT SV 97.77 mL AoV Mean Grad 10.4 mmHg AoV VTI 0.386 m AoV Area VTI 2.53 cm2 AoV Area/ BSA (VTI) 1.07 cm/m2 Mitral Valve MV DT 253 (160-240 msec) MV PHT 73 msec MV Area PHT 3.00 cm2 Pulmonary Valve PV Vmax 1.09 (0.5-1.5 m/s) RVOT Peak Gr. 0.69 mmHg PV Peak Grad 4.7 mmHg RVOT Mean Gr. 0.50 mmHg PV Mean Grad 3.4 mmHg RVOT VTI 0.072 m PV VTI 0.202 m RVOT Vmax 0.42 m/s Tricuspid Valve TR Peak Grad 15.1 mmHg TR Vmax 1.94 m/s RA Pressure 3.00 mmHg RVSP (TR) 18.1 mmHg
== END 2022-05-17 01:28 ==
LOC: DI 01:09
PROVIDERS: PCP Family Medicine; Visit Provider Family Medicine
DX: R06.09 Other forms of dyspnea (principal)
CPT/HCPCS: 93306

== ENCOUNTER 2023-04-08 09:38 | Emergency (ER) | payer MEDICARE, SELFPAY ==
[2023-04-08 09:54] VITALS: BP 162/54; PULSE 74; RESP 17; TEMP 37.2; O2SAT 98
--- NOTE | 2023-04-08 10:29 | ED.GENADUL_ITS ---
Discharge Plan Disposition Patient Disposition: Home Condition: Good Discharge Details Clinical Impression: URI (upper respiratory infection), Otitis media Primary Care Provider: Yandel Sosa ED Provider: Sandra Cristobal Home Meds and New Rx's Prescriptions: New cefdinir 300 mg capsule 300 mg PO BID 5 Days Qty: 10 0RF Continued clotrimazole-betamethasone 1-0.05 % cream 1 applic topical BID PRN (Reason: irritation) Qty: 45 3RF Rx Instructions: as directed carvedilol 6.25 mg tablet 6.25 mg PO BID Qty: 180 3RF Rx Instructions: must administer with a meal/food albuterol sulfate [ProAir HFA] 90 mcg/actuation HFA aerosol inhaler 1 puff Inhalation Q4H PRN 30 Days Qty: 1 6RF nitroglycerin 0.4 mg tablet, sublingual 0.4 mg sublingual Q5M PRN (Reason: chest pain) Qty: 20 0RF Rx Instructions: do not exceed 3 doses per episode cetirizine [Zyrtec] 10 MG tablet 10 mg PO DAILY fluticasone propionate [Flonase Allergy Relief] 9.9 ML spray,suspension 1 spry NS DAILY PRN PRN celecoxib [Celebrex] 200 mg capsule 200 mg PO BID PRN (Reason: pain) Qty: 60 3RF allopurinol 300 mg tablet See Rx Instructions .ROUTE .COMPLEX Qty: 90 3RF Dose Instruction: TAKE 1 TABLET EVERY DAY Rx Instructions: TAKE 1 TABLET EVERY DAY atorvastatin 10 mg tablet 10 mg PO DAILY Qty: 90 3RF metformin 500 mg tablet 500 mg PO BID Qty: 180 3RF losartan 100 mg tablet 100 mg PO HS Discharge Instructions Instructions: Ear Infection (ED), Upper Respiratory Infection (ED) Additional Instructions: Your exam is concerning for a right-sided ear infection. Please take the antibiotics as prescribed, these have been sent to your pharmacy. Please encourage hydration. You may continue with Tylenol and ibuprofen as needed for discomfort. If you develop fever/chills, increased pain or other new/worsening symptoms to seek care urgently once again. Otherwise, please follow-up with primary care in 2 weeks for reevaluation. Referrals: Yandel Sosa DO [Primary Care Provider] - [facility] General Date/Time Provider Initiated Documentation: 04/08/23 10:29 . Limitations to Documentation: no limitations . Information obtained by: patient and RN notes reviewed . History of Present Illness 78 year old M presents to the emergency department with the chief complaint of right ear pain, URI symptoms, described as moderate, Quality is described as aching, and is localized to the face (right ear). Patient reports no radiation. Patient started experiencing this day(s) and it has been constant. No relieving factors improve symptom(s), No exacerbating factors reported . Patient notes cough and malaise; denies chest pain, diaphoresis, fever/chills, headaches, nausea/vomiting and shortness of breath. Patient did receive the following treatments prior to arrival, other (took 2 doses of previously prescribed azithromycin) Related Data Home Medications Medication Instructions Recorded Confirmed cetirizine 10 mg tablet (Zyrtec) 10 mg PO DAILY 02/21/13 03/20/23 fluticasone propionate 50 1 spry NS DAILY PRN PRN 02/17/15 03/20/23 mcg/actuation nasal spray,suspension (Flonase Allergy Relief) celecoxib 200 mg capsule (Celebrex) 200 mg PO BID PRN pain #60 caps 12/19/21 03/20/23 clotrimazole-betamethasone 1 1 applic topical BID PRN 03/09/22 03/20/23 %-0.05 % topical cream irritation #45 grams losartan 100 mg tablet 100 mg PO HS 04/20/22 03/20/23 albuterol sulfate 90 mcg/actuation 1 puff inhalation Q4H PRN 30 days 05/22/22 03/20/23 aerosol inhaler (ProAir HFA) ##1 carvedilol 6.25 mg tablet 6.25 mg PO BID #180 tabs 05/22/22 03/20/23 nitroglycerin 0.4 mg sublingual 0.4 mg sublingual Q5M PRN chest 08/24/22 03/20/23 tablet pain #20 tabs allopurinol 300 mg tablet See Rx Instructions .Route 09/04/22 03/20/23 .COMPLEX #90 tabs atorvastatin 10 mg tablet 10 mg PO DAILY #90 tabs 03/05/23 03/20/23 metformin 500 mg tablet 500 mg PO BID #180 tabs 03/05/23 03/20/23 cefdinir 300 mg capsule 300 mg PO BID 5 days #10 caps 04/08/23 Previous Rx's Medication Instructions Recorded celecoxib 200 mg capsule (Celebrex) 200 mg PO BID PRN pain #60 caps 12/19/21 clotrimazole-betamethasone 1 1 applic topical BID PRN 03/09/22 %-0.05 % topical cream irritation #45 grams albuterol sulfate 90 mcg/actuation 1 puff inhalation Q4H PRN 30 days 05/22/22 aerosol inhaler (ProAir HFA) ##1 carvedilol 6.25 mg tablet 6.25 mg PO BID #180 tabs 05/22/22 nitroglycerin 0.4 mg sublingual 0.4 mg sublingual Q5M PRN chest 08/24/22 tablet pain #20 tabs allopurinol 300 mg tablet See Rx Instructions .Route 09/04/22 .COMPLEX #90 tabs atorvastatin 10 mg tablet 10 mg PO DAILY #90 tabs 03/05/23 metformin 500 mg tablet 500 mg PO BID #180 tabs 03/05/23 cefdinir 300 mg capsule 300 mg PO BID 5 days #10 caps 04/08/23 Allergies Allergy/AdvReac Type Severity Reaction Status Date / Time amoxicillin [Amoxicillin] AdvReac Intermediate thrush Verified 03/20/23 10:55 omeprazole AdvReac Mild abdominal Verified 03/20/23 10:55 pain General Stated Complaint: EarProblem BETTY: 4 Review of Systems Constitutional Constitutional: Reports as per HPI and Denies headache(s) Eyes Eyes: Reports as per HPI, Denies eye discharge and Denies irritation ENT Ears, Nose, Mouth, and Throat: Reports as per HPI and Denies headache(s) Cardiovascular Cardiovascular: Reports as per HPI, Denies chest pain and Denies dyspnea Respiratory Respiratory: Reports as per HPI and Denies dyspnea Integumentary/Breasts Skin/Breast: Reports as per HPI and Denies rash Neurologic Neurologic: Reports as per HPI and Denies headache(s) Exam Const General: cooperative, healthy appearing, comfortable, no acute distress, well developed and well groomed Nutritional Appearance: average body habitus and well nourished Orientation: alert and awake [facility] Head: normal to inspection, normocephalic and atraumatic Ears: hearing grossly normal bilaterally, external ears normal, right TM abnormal (erythematous, bulging), TM normal on the left, mastoids normal and other (had to remove small amount of soft cerumen) General nose exam: external nose normal and nares normal Face and sinus: normal facial exam, sinuses nontender and face symmetric Mouth: oral mucosae normal, lip normal, tongue normal, oropharynx normal and moist mucous membranes Teeth and gingiva: dentition normal Throat: uvula midline and abnormal tonsil bilaterally erythema Eyes General: appearance normal, both eyes and all related structures Neck Neck: normal visual inspection, full ROM and no lymphadenopathy Resp Effort & Inspection: normal respiratory effort, able to speak in complete sentences and no respiratory distress Auscultation: clear to auscultation bilaterally, no rales, no rhonchi and no wheezes Cardio Rate: regular rate Rhythm: regular rhythm Heart Sounds: S1 normal and S2 normal Skin General skin exam: no rashes or lesions noted Neuro General: patient alert and patient awake Cognition: normal cognition Speech: speech normal Gait: normal gait Course Vital Signs Vital signs: Vital Signs Temperature 37.2 C 04/08/23 09:54 Pulse 74 04/08/23 09:54 Respiratory Rate 17 04/08/23 09:54 Blood Pressure 162/54 H 04/08/23 09:54 Pulse Oximetry 98 04/08/23 09:54 Temperature 37.2 C 04/08/23 09:54 Temperature Source Temporal Artery Scan 04/08/23 09:54 Pulse 74 04/08/23 09:54 Respiratory Rate 17 04/08/23 09:54 Blood Pressure 162/54 H 04/08/23 09:54 Pulse Oximetry 98 04/08/23 09:54 Oxygen Delivery Method Room Air 04/08/23 09:54 Oxygen Flow Rate 0 04/08/23 09:54 Medical Decision Making Patient is a pleasant 78-year-old male with past medical history significant for hypercholesterolemia, asymmetrical sensorineural hearing loss, conductive hearing loss, diabetes, asthma, hypertension, PILLO,, presenting today with chief complaint of right ear pain in the setting of upper respiratory infection with sore throat, cough, congestion. States that the pain came on 2 to 3 days ago. Took a few tabs of azithromycin that he had. Has not had any fevers or chills. No body aches. States that he took a COVID test and was negative. On exam, patient appears nontoxic. Lungs are clear, normal cardiac exam. HEENT exam is significant for right TM being erythematous and appearing bulging consistent with a bacterial otitis. Small amount of soft cerumen had to be removed for better visualization. No mastoid tenderness. No headache to suggest [employer] spread. No lymphadenopathy. Posterior oropharynx is erythematous. Will begin the patient on prednisone cefdinir as he does report an allergy to Amoxil. However, the allergies is reported to be thrush. I advised that this could happen with all antibiotics we discussed ways to reduce this risk. Encourage hydration. Encouraged follow-up with primary care. Return precautions were discussed. All his questions and concerns were addressed and he is in agreement this plan Quality:[facility] Health Related Social Needs: No Data to Display PFSH All Active Problems (Updated 04/08/23 @ 11:33 by DARRYL Hope) Otitis media (Acute) URI (upper respiratory infection) (Acute) Asthma (Chronic 10/01/13) PFT NL 10/2013 (low ERV) Chronic rhinitis (Chronic 02/20/11) Elev transaminase/LDH (Chronic 02/20/11) FATTY LIVER Essential hypertension (Chronic 12/31/12) Fatty liver (Chronic 12/09/14) [place] [facility] [place] for [place] A[place] recommended 12/2015 Gout, unspecified (Chronic 09/05/12) Obesity, unspecified (Chronic 02/20/11) Obstructive sleep apnea (Chronic 10/22/13) Dr García C-PAP FFM Other and unspecified hyperlipidemia (Chronic 09/05/12) PCEq 19.7%; LDL baseline 173 Cirrhosis of liver without ascites (Chronic) 03/02/18 DARRYL Viveros [facility] [place]/26[place] F/U GI Portal hypertension (Chronic) 02/20/18 [facility] Type 2 diabetes mellitus without complications (Chronic) elevated bs dx 2013 Renal cyst (Acute) Bursitis of right shoulder (Acute ~02/2019) Bursitis of left shoulder (Acute ~02/2019) Left hip impingement syndrome (Acute) Degenerative joint disease of left hip (Acute) Colonic polyp (Acute) Colonoscopy Spring 2019; inadequate prep, needs repeat in 1-2 years Lactose intolerance (Acute) Diabetes mellitus (Chronic) Habitual alcohol use (Acute) Environmental allergies (Acute) Asymmetrical sensorineural hearing loss (Acute) Impacted cerumen, bilateral (Acute) Conductive hearing loss, external ear (Acute) Lumbar spondylosis (Acute) Cataracts, bilateral (Acute) 02/02/21 [facility] Functional diarrhea (Acute) Right flank pain (Acute) Balanitis (Acute ~11/2021) 11/22/21 [facility] Intertrigo (Acute ~11/2021) Pre-op evaluation (Acute) Dyspnea on exertion (Acute) Medical History Chronic back pain Hypercholesterolemia Surgical History Hx of cataract removal with insertion of prosthetic lens History of surgery repair bone under eye History of back surgery patient denies having back surgery 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 Family History Father , 88 yrs Asthma Dementia Mother , 91 yrs Dementia Sister Scoliosis Breathing problem Sister No problems noted. Sister No problems noted. Sister No problems noted. Son No problems noted. Daughter No problems noted. Daughter No problems noted. Other COPD (chronic obstructive pulmonary disease) Social History Smoking/Tobacco Use Status: Never Smoking risk assessment performed?: Yes Alcohol Intake: current Alcohol Intake frequency: 0-2 drinks per day Alcohol type: wine Drug use: Never Substance use type: does not use Adopted: No Household members: spouse Housing: house Number of Children: 3 Communication Needs: Corrective Lenses current occupation: Realtor Pets and animals: No Current gender identity: male What is your relationship status?: How often do you talk on the phone with friends or family?: three or more times per week Panel score (0-1 are the most socially isolated patients): 2 What type of physical activity do you participate in: walking Duration: 15-30 minutes/day Frequency: daily Seatbelt use: always Drive intox or ride w/intox bottom hoop driver: No Working smoke detector in home: Yes Carbon monox detector in home: Yes Do you feel safe at home: Yes Do you feel safe in your relationship?: Yes
== END 2023-04-08 11:40 | disposition home or self-care (01) ==
PROVIDERS: Emergency Provider Physician Assistant; PCP Family Medicine
DX: J06.9 Acute upper respiratory infection, unspecified (principal); H66.91 Otitis media, unspecified, right ear; E11.9 Type 2 diabetes mellitus without complications; I10 Essential (primary) hypertension; Z79.84 Long term (current) use of oral hypoglycemic drugs; Z79.899 Other long term (current) drug therapy
CPT/HCPCS: 99283

== ENCOUNTER 2023-05-01 15:58 | Outpatient (REF) | payer MEDICARE, SELFPAY | END 2023-05-01 15:59 | disposition home or self-care (01) | LOC: LBN 15:58 | PROVIDERS: PCP Family Medicine; Visit Provider Registered Nurse Maternal Newborn | DX: H66.011 Acute suppurative otitis media with spontaneous rupture of ear drum, right ear (principal) | CPT/HCPCS: 87077; 87070 ==

== ENCOUNTER → 2023-05-02 11:46 | Outpatient (CLI) | payer MEDICARE, SELFPAY ==
--- NOTE | 2023-05-02 10:15 | DI.CT_ITS ---
Exam(s) CT TEMPORAL BONE WO EXAM: CT TEMPORAL BONE WO CLINICAL HISTORY: ? Mastoiditis, ACUTE SUPPURATIVE OTITIS MEDIA RT EAR SPONTANEOUS RUPTURE. TECHNIQUE: Imaging Protocol: Axial computed tomography images with coronal and sagittal reformatted images were created and reviewed. CONTRAST MATERIAL: none COMPARISON: No exams were available for comparison FINDINGS: Right : Opacification of the right mastoid air cells. No bony destruction. No visible adjacent absc ess. Soft tissue density material is noted in the middle ear and adjacent external auditory canal. The right external auditory canal appears now lower than the contralateral side. No definite ossicul ar destruction. Some soft tissues thickening at the external auditory canal. The visualized portions of the brain are unremarkable. Left : The mastoid air cells are clear. The external auditory canal and middle ear are clear. Ossic les and semi circular canals are grossly normal. Small mucous retention cyst noted in the left maxillary sinus. Small mucous retention cyst in the ri ght sphenoid sinus. The orbits are unremarkable. There are metallic sutures in the right frontal zygomatic area and righ t inferior orbit, related to prior surgery.. IMPRESSION: Findings consistent with acute otomastoiditis. No evidence of bony destruction. No evidence of absc ess. RADIATION DOSE DELIVERED: Total DLP DATA REPOSITORY: All CT scans at this facility are submitted to the National Radiology Data Registry (NRDR) Dose Index Registry (DIR) with the [employer] (ACR). RADIATION OPTIMIZATION: All CT scans at this facility use at least one of these dose optimization te chniques: automated exposure control; mA and/or kV adjustment per patient size (includes targeted exa ms where dose is matched to clinical indication); or iterative reconstruction.
== END ==
PROVIDERS: PCP Family Medicine; Visit Provider Registered Nurse Maternal Newborn
DX: H66.014 Acute suppurative otitis media with spontaneous rupture of ear drum, recurrent, right ear (principal)
CPT/HCPCS: 70480

== ENCOUNTER → 2023-05-28 17:12 | Outpatient (CLI) | payer MEDICARE, SELFPAY ==
--- NOTE | 2023-05-28 12:15 | DI.RAD_ITS ---
Exam(s) XR LUMBAR SPINE COMPLETE EXAM: XR LUMBAR SPINE COMPLETE CLINICAL HISTORY: M54.9 Dorsalgia, G89.29 Chronic back pain, R/O fracture. TECHNIQUE: 2D digital imaging was performed. Three views. COMPARISON: CR XR LUMBAR SPINE AP, LAT from 10/11/2020 FINDINGS: BONES: No fracture or gross evidence of a destructive lesion. Vertebral body heights are maintained. Multilevel facet hypertrophy identified. DISKS: Moderate to severe narrowing of the intervertebral disc. Prominent endplate osteophytes throu ghout. Partial sacralization of the left L5 transverse process. ALIGNMENT: Lumbar spinal alignment is within normal limits. SOFT TISSUE: Vascular calcifications. IMPRESSION: Advanced degenerative changes. DATA REPOSITORY: RADIATION DOSE DELIVERED:
== END ==
PROVIDERS: PCP Family Medicine; Visit Provider Family Medicine
DX: M51.36 Other intervertebral disc degeneration, lumbar region (principal)
CPT/HCPCS: 72110

== ENCOUNTER 2023-06-06 09:59 | Emergency (ER) | payer MEDICARE, SELFPAY ==
[2023-06-06 10:01] VITALS: BP 205/65; PULSE 77; RESP 16; TEMP 36.4; O2SAT 97
--- NOTE | 2023-06-06 10:20 | ED.GENADUL_ITS ---
Discharge Plan Disposition Patient Disposition: Home Condition: Improving Discharge Details Clinical Impression: Back strain Primary Care Provider: Yandel Sosa ED Provider: Drik Munroe Home Meds and New Rx's Prescriptions: New lidocaine [Lidoderm] 5 % adhesive patch,medicated 1 patch topical DAILY PRNQty: 15 0RF Rx Instructions: leave on most painful area for up to 12 hrs No Action clotrimazole-betamethasone 1-0.05 % cream 1 applic topical BID PRN (Reason: irritation) Qty: 45 3RF Rx Instructions: as directed albuterol sulfate [ProAir HFA] 90 mcg/actuation HFA aerosol inhaler 1 puff Inhalation Q4H PRN 30 Days Qty: 1 6RF nitroglycerin 0.4 mg tablet, sublingual 0.4 mg sublingual Q5M PRN (Reason: chest pain) Qty: 20 0RF Rx Instructions: do not exceed 3 doses per episode ibuprofen 200 mg capsule 200 mg PO Q6H PRN Patient Comments: 2-3 tablets every 4-6 hrs prednisone 20 mg tablet See Rx Instructions PO DAILY Qty: 24 0RF Rx Instructions: t3 tabs for 5 days, then t2 tabs for 3 days, then t1 tab for 3 days orally daily; cetirizine [Zyrtec] 10 MG tablet 10 mg PO DAILY fluticasone propionate [Flonase Allergy Relief] 9.9 ML spray,suspension 1 spry NS DAILY PRN PRN allopurinol 300 mg tablet See Rx Instructions .ROUTE .COMPLEX Qty: 90 3RF Dose Instruction: TAKE 1 TABLET EVERY DAY Rx Instructions: TAKE 1 TABLET EVERY DAY atorvastatin 10 mg tablet 10 mg PO DAILY Qty: 90 3RF metformin 500 mg tablet 500 mg PO BID Qty: 180 3RF losartan 100 mg tablet See Rx Instructions .ROUTE .COMPLEX Qty: 90 3RF Dose Instruction: TAKE ONE TABLET BY MOUTH EVERY DAY Rx Instructions: TAKE ONE TABLET BY MOUTH EVERY DAY carvedilol 6.25 mg tablet 6.25 mg PO BID Qty: 180 3RF Rx Instructions: must administer with a meal/food HPI General Date/Time Provider Initiated Documentation: 06/06/23 10:01 . HPI Narrative: 78-year-old male history of chronic lower back pain presents with acute on chronic lower back pain right lower back in the setting of walking a lot yesterday, currently is on a prednisone burst pack provided by his primary care physician to treat his back pain, denies bowel or bladder issues, is able to ambulate without issue. No history of kidney stones. No nausea vomiting fevers or other systemic signs of illness. Related Data Home Medications Medication Instructions Recorded Confirmed cetirizine 10 mg tablet (Zyrtec) 10 mg PO DAILY 02/21/13 06/06/23 fluticasone propionate 50 1 spry NS DAILY PRN PRN 02/17/15 06/06/23 mcg/actuation nasal spray,suspension (Flonase Allergy Relief) clotrimazole-betamethasone 1 1 applic topical BID PRN 03/09/22 06/06/23 %-0.05 % topical cream irritation #45 grams albuterol sulfate 90 mcg/actuation 1 puff inhalation Q4H PRN 30 days 05/22/22 06/06/23 aerosol inhaler (ProAir HFA) ##1 nitroglycerin 0.4 mg sublingual 0.4 mg sublingual Q5M PRN chest 08/24/22 06/06/23 tablet pain #20 tabs allopurinol 300 mg tablet See Rx Instructions .Route 09/04/22 06/06/23 .COMPLEX #90 tabs atorvastatin 10 mg tablet 10 mg PO DAILY #90 tabs 03/05/23 06/06/23 metformin 500 mg tablet 500 mg PO BID #180 tabs 03/05/23 06/06/23 losartan 100 mg tablet See Rx Instructions .Route 04/23/23 06/06/23 .COMPLEX #90 tabs carvedilol 6.25 mg tablet 6.25 mg PO BID #180 tabs 05/25/23 06/06/23 ibuprofen 200 mg capsule 200 mg PO Q6H PRN 05/28/23 06/06/23 prednisone 20 mg tablet See Rx Instructions PO DAILY #24 05/28/23 06/06/23 tabs lidocaine 5 % topical patch 1 patch topical DAILY PRN #15 ea 06/06/23 (Lidoderm) Previous Rx's Medication Instructions Recorded clotrimazole-betamethasone 1 1 applic topical BID PRN 03/09/22 %-0.05 % topical cream irritation #45 grams albuterol sulfate 90 mcg/actuation 1 puff inhalation Q4H PRN 30 days 05/22/22 aerosol inhaler (ProAir HFA) ##1 nitroglycerin 0.4 mg sublingual 0.4 mg sublingual Q5M PRN chest 08/24/22 tablet pain #20 tabs allopurinol 300 mg tablet See Rx Instructions .Route 09/04/22 .COMPLEX #90 tabs atorvastatin 10 mg tablet 10 mg PO DAILY #90 tabs 03/05/23 metformin 500 mg tablet 500 mg PO BID #180 tabs 03/05/23 losartan 100 mg tablet See Rx Instructions .Route 04/23/23 .COMPLEX #90 tabs carvedilol 6.25 mg tablet 6.25 mg PO BID #180 tabs 05/25/23 prednisone 20 mg tablet See Rx Instructions PO DAILY #24 05/28/23 tabs lidocaine 5 % topical patch 1 patch topical DAILY PRN #15 ea 06/06/23 (Lidoderm) Allergies Allergy/AdvReac Type Severity Reaction Status Date / Time amoxicillin [Amoxicillin] AdvReac Intermediate thrush Verified 06/06/23 10:04 omeprazole AdvReac Mild abdominal Verified 06/06/23 10:04 pain General Stated Complaint: Nk/Back Pain BETTY: 4 Review of Systems Narrative: Review of Systems Constitutional: negative Eyes: negative ENT: negative Cardiovascular: negative Respiratory: negative Gastrointestinal: negative : negative Musculoskeletal: Back pain Skin: negative Neurologic: negative Psych: negative Exam Narrative Exam Narrative: Physical Examination General: alert, awake, cooperative, resting comfortably, no acute distress HEENT: normocephalic, atraumatic; PERRL, EOM intact, conjunctiva normal; no nasal discharge; moist mucous membranes, oral and pharyngeal mucosa normal, tolerating secretions Neck: supple, trachea midline; full ROM Chest: normal to inspection Respiratory: normal respiratory effort, speaking in full sentences Back: No midline spinal tenderness step-off crepitus or deformity Skin: no lesions, rashes or trauma appreciated Neuro: AAOx3, normal speech, moving all extremities; 5-5 strength upper and lower extremities bilaterally ambulatory without assistance no ataxia Extremities: Full range of motion, sensation intact Psych: Appropriate mood and affect Course Vital Signs Vital signs: Vital Signs Temperature 36.4 C L 06/06/23 10:01 Pulse 77 06/06/23 10:01 Respiratory Rate 16 06/06/23 10:01 Blood Pressure 205/65 H 06/06/23 10:01 Pulse Oximetry 97 06/06/23 10:01 Temperature 36.4 C L 06/06/23 10:01 Temperature Source Skin 06/06/23 10:01 Pulse 77 06/06/23 10:01 Respiratory Rate 16 06/06/23 10:01 Respiratory Effort Normal, Non-Labored 06/06/23 10:05 Blood Pressure 205/65 H 06/06/23 10:01 Blood Pressure Position Sitting 06/06/23 10:01 Pulse Oximetry 97 06/06/23 10:01 Oxygen Delivery Method Room Air 06/06/23 10:01 Oxygen Flow Rate 0 06/06/23 10:01 Pain Level 10 06/06/23 10:01 Medical Decision Making 78-year-old male history of chronic lower back pain presents with acute on chronic lower back pain right lower back in the setting of walking a lot yesterday, currently is on a prednisone burst pack provided by his primary care physician to treat his back pain, denies bowel or bladder issues, is able to ambulate without issue. No history of kidney stones. No nausea vomiting fevers or other systemic signs of illness. Patient neurologically intact full range of motion bilateral lower extremities ambulatory no ataxia, sensation intact. High clinical suspicion for lumbar back strain versus lumbar nerve impingement versus SI joint inflammation, low suspicion for spinal cord compression mass or hemorrhage, low suspicion for spinal fracture. Outpatient imaging showing decreased disc height as well as osteophyte development in lower back. Trial of anti-inflammatory analgesia likely home with close follow-up 1236 patient resting comfortably no acute distress. Quality:SDOH Health Related Social Needs: No Data to Display PFSH All Active Problems (Updated 06/06/23 @ 12:37 by Dirk Munroe MD) Back strain (Acute) Acute suppurative otitis media of right ear with spontaneous rupture of tympanic membrane (Acute ~04/2023) right myringotomy w/ tympanostomy tube 05/11/23 Asthma (Chronic 10/01/13) PFT NL 10/2013 (low ERV) Chronic rhinitis (Chronic 02/20/11) Elev transaminase/LDH (Chronic 02/20/11) FATTY LIVER Essential hypertension (Chronic 12/31/12) Fatty liver (Chronic 12/09/14) Dr Misha AGOSTO [facility] follows immunization for Hep A&C recommended 12/2015 Gout, unspecified (Chronic 09/05/12) Obesity, unspecified (Chronic 02/20/11) Obstructive sleep apnea (Chronic 10/22/13) Dr García C-PAP [facility] Other and unspecified hyperlipidemia (Chronic 09/05/12) PCEq 19.7%; LDL baseline 173 Cirrhosis of liver without ascites (Chronic) 03/02/[address] [facility] GI 08/26/19 F/U GI Portal hypertension (Chronic) 02/20/[address] [facility] GI Type 2 diabetes mellitus without complications (Chronic) elevated bs dx 2013 Renal cyst (Acute) Bursitis of right shoulder (Acute ~02/2019) Bursitis of left shoulder (Acute ~02/2019) Left hip impingement syndrome (Acute) Degenerative joint disease of left hip (Acute) Colonic polyp (Acute) Colonoscopy Spring 2019; inadequate prep, needs repeat in 1-2 years Lactose intolerance (Acute) Diabetes mellitus (Chronic) Habitual alcohol use (Acute) Environmental allergies (Acute) Asymmetrical sensorineural hearing loss (Acute) Impacted cerumen, bilateral (Acute) Conductive hearing loss, external ear (Acute) Lumbar spondylosis (Acute) Cataracts, bilateral (Acute) 02/02/21 [facility] Functional diarrhea (Acute) Right flank pain (Acute) Balanitis (Acute ~11/2021) 11/22/[address] [facility] (Acute ~11/2021) Pre-op evaluation (Acute) Dyspnea on exertion (Acute) Medical History Chronic back pain Hypercholesterolemia Surgical History Hx of cataract removal with insertion of prosthetic lens History of surgery repair bone under eye History of back surgery patient denies having back surgery 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 Family History Father , 88 yrs Asthma Dementia Mother , 91 yrs Dementia Sister Scoliosis Breathing problem Sister No problems noted. Sister No problems noted. Sister No problems noted. Son No problems noted. Daughter No problems noted. Daughter No problems noted. Other COPD (chronic obstructive pulmonary disease) Social History Smoking/Tobacco Use Status: Never Smoking risk assessment performed?: Yes Alcohol Intake: current Alcohol Intake frequency: 0-2 drinks per day Alcohol type: wine Drug use: Never Substance use type: does not use Adopted: No Household members: spouse Housing: house Number of Children: 3 Communication Needs: Corrective Lenses current occupation: Realtor Pets and animals: No Current gender identity: male What is your relationship status?: How often do you talk on the phone with friends or family?: three or more times per week Panel score (0-1 are the most socially isolated patients): 2 What type of physical activity do you participate in: walking Duration: 15-30 minutes/day Frequency: daily Seatbelt use: always Drive intox or ride w/intox home delivery driver: No Working smoke detector in home: Yes Carbon monox detector in home: Yes Do you feel safe at home: Yes Do you feel safe in your relationship?: Yes
[2023-06-06] MEDS: Lidocaine 5% Patch 1 PATCH TP (10:26)
[2023-06-06] MEDS: Cyclobenzaprine 10 MG TAB PO (10:26)
[2023-06-06] MEDS: Ketorolac 15 MG/ML VIAL IM (10:26)
[2023-06-06 11:45] VITALS: BP 173/65; PULSE 67; O2SAT 95
== END 2023-06-06 12:51 | disposition home or self-care (01) ==
PROVIDERS: Emergency Provider Emergency Medicine; PCP Family Medicine
DX: S39.012A Strain of muscle, fascia and tendon of lower back, initial encounter (principal); X50.0XXA Overexertion from strenuous movement or load, initial encounter
CPT/HCPCS: 96372; 99283; J1885

== ENCOUNTER → 2023-07-10 00:14 | Outpatient (CLI) | payer MEDICARE, SELFPAY ==
--- NOTE | 2023-07-10 07:45 | DI.MRI_ITS ---
Exam(s) MR LUMBAR SPINE WO EXAM: MR LUMBAR SPINE WO CLINICAL HISTORY: New onset low back pain,m54.50. TECHNIQUE: Multiplanar multisequence MRI of the Lumbar spine was performed. COMPARISON: CR XR LUMBAR SPINE COMPLETE from 05/28/2023 FINDINGS: Bones: The last intervertebral disc space is designated the L5/S1 level for the numbering purpose of this examination. The vertebral body heights are well maintained. Alignment is satisfactory. There areas of T1 and T2 hyperintensity in the vertebral bodies which may reflect hemangiomas or fatty rest s. Cord: The conus tip ends at the T12 level. It is of normal size and signal intensity. T12-L1: No disc herniations or bulges are present. No central spinal canal or neural foraminal stenos is. L1-2: No disc herniations or bulges are present. No central spinal canal or neural foraminal stenosis . L2-3: No disc herniations or bulges are present. No central spinal canal or neural foraminal stenosis . L3-4: There is a mild diffuse disc bulge. There are degenerative changes of the facets. No central spinal canal or neural foraminal stenosis. L4-5: There is a disc bulge eccentric to the right causing moderately severe right neural foraminal s tenosis. No significant central spinal canal stenosis is seen. No significant left neural foraminal stenosis is present. There are degenerative changes of the facets at this level. L5-S1: No disc herniations or bulges are present. No central spinal canal or neural foraminal stenosi s. Soft tissues: The visualized SI joints and sacrum are well maintained. The paraspinal soft tissues ar e unremarkable. IMPRESSION: 1. There are degenerative changes seen in the lumbar spine. 2. The degenerative changes are most marked at L4-L5 causing moderately severe right neural foraminal stenosis. DATA REPOSITORY:
== END ==
PROVIDERS: PCP Family Medicine; Visit Provider Family Medicine
DX: M54.50 Low back pain, unspecified (principal)
CPT/HCPCS: 72148

== ENCOUNTER 2023-08-22 02:25 | Outpatient (CLI) | payer MEDICARE, SELFPAY ==
[2023-08-22 13:50] LABS: HCT 43.3 % (40.0-50.0); MCHC 34.6 % (32.0-36.0); MCV 92 fL (80-95); MPV 9.9 fL (8.0-11.0); Platelet Count 161 10^3/uL (130-400); RBC 4.69 10^6/uL (4.36-5.78); RDW 13.2 % (11.8-14.1); RDW-SD 44.9 fL; WBC 6.81 10^3/uL (4.4-10.8)
[2023-08-22 14:58] LABS: Vitamin B12 216 pg/mL (193-986)
== END 2023-08-22 02:26 | disposition home or self-care (01) ==
LOC: LBO 02:25
PROVIDERS: PCP Family Medicine; Referring Provider Family Medicine; Visit Provider Family Medicine
DX: R53.83 Other fatigue (principal)
CPT/HCPCS: 36415; 85027; 82607; 84443

== ENCOUNTER 2023-11-13 01:22 | Outpatient (CLI) | payer MEDICARE, SELFPAY ==
--- NOTE | 2023-11-13 14:00 | DI.MRI_ITS ---
Exam(s) MR LUMBAR SPINE WO EXAM: MR LUMBAR SPINE WO whole CLINICAL HISTORY: LARGE HAMANGIOMA, LOW BACK PAIN M54.50 R/O LESION. TECHNIQUE: Multiplanar multisequence MRI of the Lumbar spine was performed. COMPARISON: CT CT ABDOMEN PELVIS WO from 01/19/2022 CR XR LUMBAR SPINE COMPLETE from 05/28/2023 MR MR LUMBAR SPINE WO from 07/10/2023 FINDINGS: Bones: The last intervertebral disc space is designated the L5/S1 level for the numbering purpose of this ex amination. The vertebral body heights are well maintained. Alignment: Marrow signal: Large hemangiomas again noted in the L2 vertebral body which is unchanged. No abnorma l high signal on STIR sequences. Other scattered small foci of high T1 signal are noted in other brennon tebral bodies. No concerning lesions. Cord: The conus tip ends at the T12 level. It is of normal size and signal intensity. T12-L1: Severe loss of disc height. Endplate osteophytes. No focal disc herniation is present. No central spinal canal stenosis.No neural foraminal stenosis. L1-2: Severe loss of disc height. Small endplate osteophytes. No focal disc herniation is present . No central spinal canal stenosis.No neural foraminal stenosis. L2-3:Severe loss of disc height and endplate osteophytes. No focal disc herniation is present. No c entral spinal canal stenosis.No neural foraminal stenosis. L3-4: Severe loss of disc height and endplate osteophytes. No focal disc herniation is present. F acet degenerative changes. No central spinal canal stenosis.No neural foraminal stenosis. L4-5:Severe loss of disc height and endplate osteophytes. Facet degenerative changes. No focal disc herniation is present. No central spinal canal stenosis. Severe right neural foraminal narrowing. L5-S1: Disc height is maintained.No focal disc herniation is present. No central spinal canal steno sis.No neural foraminal stenosis. The visualized SI joints and sacrum are unremarkable. Soft tissues: The paraspinal soft tissues are unremarkable. IMPRESSION: Stable appearance hemangioma in the L2 vertebral body. Other smaller lesions are also seen at other levels. Stable multilevel degenerative disc changes. There is severe right neural foraminal narrowing at L4- 5 secondary to combination of endplate osteophytes and facet osteophytes. DATA REPOSITORY:
== END 2023-11-13 01:42 ==
PROVIDERS: PCP Family Medicine; Visit Provider Neurological Surgery
DX: M99.63 Osseous and subluxation stenosis of intervertebral foramina of lumbar region (principal)
CPT/HCPCS: 72148

== ENCOUNTER → 2024-01-07 14:23 | Outpatient (BNVA) | payer MEDICARE, SELFPAY | PROVIDERS: PCP Family Medicine; Referring Provider Family Medicine; Visit Provider Student in an Organized Health Care Education/Training Program | DX: M65.331 Trigger finger, right middle finger (principal) | CPT/HCPCS: 99213 ==

== ENCOUNTER 2024-01-09 06:18 | Day surgery (SDC) | payer MEDICARE, SELFPAY ==
[2024-01-09 06:36] VITALS: BP 156/65; PULSE 74; RESP 16; TEMP 36.5; O2SAT 96
--- NOTE | 2024-01-09 07:09 | PDOC.DSDIS_ITS ---
Date of service: 01/09/24 Discharge Plan Disposition Patient Disposition: Home Condition: Good Discharge Details Reason For Visit: RMF Trigger release Attending Provider: Jesse Ocampo Primary Care Provider: Yandel Sosa Home Meds and New Rx's Prescriptions: New acetaminophen 500 mg tablet 1,000 mg PO TID Qty: 90 0RF ibuprofen 600 mg tablet 600 mg PO TID PRN (Reason: pain) Qty: 90 0RF Continued clotrimazole-betamethasone 1-0.05 % cream 1 applic topical BID PRN (Reason: irritation) Qty: 45 3RF Rx Instructions: as directed albuterol sulfate [ProAir HFA] 90 mcg/actuation HFA aerosol inhaler 1 puff Inhalation Q4H PRN 30 Days Qty: 1 6RF ofloxacin 0.3 % drops 5 drp otic (ear) DAILY 21 Days Qty: 10 1RF Rx Instructions: Right ear only cetirizine [Zyrtec] 10 MG tablet 10 mg PO DAILY fluticasone propionate [Flonase Allergy Relief] 9.9 ML spray,suspension 1 spry NS DAILY PRN PRN atorvastatin 10 mg tablet 10 mg PO DAILY Qty: 90 3RF metformin 500 mg tablet 500 mg PO BID Qty: 180 3RF losartan 100 mg tablet See Rx Instructions .ROUTE .COMPLEX Qty: 90 3RF Dose Instruction: TAKE ONE TABLET BY MOUTH EVERY DAY Rx Instructions: TAKE ONE TABLET BY MOUTH EVERY DAY carvedilol 6.25 mg tablet 6.25 mg PO BID Qty: 180 3RF Rx Instructions: must administer with a meal/food allopurinol 300 mg tablet See Rx Instructions .ROUTE .COMPLEX Qty: 90 3RF Dose Instruction: TAKE 1 TABLET EVERY DAY Rx Instructions: TAKE 1 TABLET EVERY DAY Discharge Instructions Stand Alone Forms: Terrence Lorenzo. Finger Release Referrals: Jesse Ocampo MD [ [facility] STAFF PHYSICIAN] - Activity:: Activity as Tolerated Remove Dressings/Wound Care:: 48 hours Shower/Bathe:: 48 hours Diet:: As Tolerated Discharge Orders Discharge Orders: Discharge Order (Routine); Ordered 01/09/24 Ordered By: Mane Waterman DS: Diagnosis Discharge Diagnosis (1) Trigger finger, right middle finger: Status: Acute
[2024-01-09] MEDS: Lidocaine 1% Pres-Free W/EPI 1/200,000 10 ML VIAL (07:28)
[2024-01-09] MEDS: Sodium Bicarbonate 50 MEQ/50 ML VIAL (07:28)
[2024-01-09 07:48] VITALS: BP 139/60; PULSE 66; RESP 16; TEMP 36.1; O2SAT 96
--- NOTE | 2024-01-09 14:30 | W.PM.OP ---
Operative Note Operative Note PRE-OP DIAGNOSIS: Right Middle Finger Trigger Finger POST-OP DIAGNOSIS: same PROCEDURE: Trigger Finger Release - Right Middle Finger SURGEON: Jesse Ocampo ANESTHESIA TYPE: Local By Surgeon Refer to Anesthesia Record ESTIMATED BLOOD LOSS: 0 PATHOLOGY: none sent COMPLICATIONS: None Patient was transported to: same day Patient's condition: stable Indications: I have seen Gianni in clinic for symptoms of a trigger finger. The catching, clicking, locking, and pain limited function. The diagnosis of trigger finger was evident. The symptoms had not responded to conservative measures. I discussed trigger finger release with the patient. I reviewed the risks of the procedure to include, but not limited to, bleeding, infection, pain, stiffness, incomplete release, damage to nerves or vessels, continued catching, recurrence. Despite these risks, the patient elected to proceed. Findings: There was a tightened A1 leopoldo which was released. The flexor tendons were inspected and the patient was able to move the finger without any catching, clicking, or locking. Procedure Description: Gianni was greeted in the preoperative holding area where the correct side was identified and marked. The consent was reviewed with the patient and signed. All questions were answered. He was taken back to the operating room. The patient was placed into the supine position on the operating room table with the right arm on an arm board. All bony prominences were well padded. No prophylactic antibiotics were administered since this was a clean, elective hand surgical case. The right arm was then prepped with Chloraprep and draped in a standard fashion with stockinette and extremity drape. A timeout to confirm correct identity, side and site, procedure, allergies, anesthesia, and medical concerns was performed. The surgical site was marked as a longitudinal incision directly over the A1 leopoldo of the involved digit. This was confirmed with palpation during finger flexion. This area, overlying the metacarpal head, was then anesthetized with 1% Lidocaine. The patient tolerated this well and once the anesthetic had setup, the procedure began. A longitudinal incision was made through skin only, approximately 1cm. The deep tissues were dissected bluntly. Once the A1 leopoldo and flexor tendons were identified the soft tissue including neurovascular structures were retracted medially and laterally. There were no crossing structures over the A1 leopoldo. The proximal edge of the leopoldo was identified and the leopoldo was incised with tenotomy scissors. There was a release of the tendons once this was fully released. The tendons were then removed from the wound and inspected. Excess synovium was resected. The tendons were then returned and the patient was asked to move the finger into deep flexion and back to extension. There was no recreation of the pre-operative symptoms. The hand was then once more inspected for any A0 leopoldo or area of possible constriction. The wound was then irrigated and the skin was closed with a 4-0 Nylon. This was dressed with gauze and a Conform dressing. The patient tolerated the procedure well and was returned to the Same Day Surgery area in a stable condition suffering no known complication. Date of Procedure: 01/09/24
== END 2024-01-09 07:58 | disposition home or self-care (01) ==
PROVIDERS: PCP Family Medicine; Visit Provider Student in an Organized Health Care Education/Training Program
PROC: (CPT 26055; principal; 2024-01-09 07:30)
DX: M65.331 Trigger finger, right middle finger (principal)
CPT/HCPCS: 26055; J2004

== ENCOUNTER 2024-01-11 09:54 | Emergency (ER) | payer MEDICARE, SELFPAY ==
[2024-01-11 10:02] VITALS: BP 155/61; PULSE 75; RESP 18; TEMP 36.6; O2SAT 97
--- NOTE | 2024-01-11 10:15 | DI.RAD_ITS ---
Exam(s) XR LUMBAR SPINE COMPLETE EXAM: XR LUMBAR SPINE COMPLETE CLINICAL HISTORY: Fall,. TECHNIQUE: 2D digital imaging was performed of the lumbar spine. Five images were obtained. AP, la teral, right oblique, left oblique and L5-S1 spot views were obtained. COMPARISON: CR XR LUMBAR SPINE COMPLETE from 05/28/2023 FINDINGS: BONES: No fracture or destructive lesion. There are endplate osteophytes at all levels of the lumbar spine. Degenerative changes of the facets are seen in the lower lumbar spine. DISKS: Multilevel disc space narrowing is present. ALIGNMENT: Lumbar spinal alignment is within normal limits. No spondylolysis or spondylolisthesis. SOFT TISSUE: Vascular calcifications are present. IMPRESSION: No acute fracture or subluxation. DATA REPOSITORY: RADIATION DOSE DELIVERED:
--- NOTE | 2024-01-11 10:15 | DI.RAD_ITS ---
Exam(s) XR HIP LT COMPLETE AP PELVIS EXAM: XR HIP LT COMPLETE AP PELVIS CLINICAL HISTORY: Fall. TECHNIQUE: 2D digital imaging was performed of the left hip. Three views were obtained. AP pelvis and lateral left hip views were obtained. COMPARISON: CR XR HIP LT COMPLETE AP PELVIS from 06/05/2019 FINDINGS: BONES: No acute fracture is present. No bony destructive lesion is seen. JOINTS: No dislocation present. There are degenerative changes seen in the lower lumbar spine in the hips. The sacroiliac joints and symphysis pubis are well maintained. SOFT TISSUE: Normal. IMPRESSION: No acute fracture or dislocation. DATA REPOSITORY: RADIATION DOSE DELIVERED:
--- NOTE | 2024-01-11 10:17 | W.ED.GENAD ---
Discharge Plan Disposition Patient Disposition: Home Condition: Stable Discharge Details Clinical Impression: Contusion of left flank, Fall (on) (from) other stairs and steps, initial encounter Primary Care Provider: Yandel Sosa ED Provider: Khushboo Moura Home Meds and New Rx's Prescriptions: New lidocaine 5 % adhesive patch,medicated 1 patch topical DAILY PRN (Reason: Pain) 7 Days Qty: 15 0RF Rx Instructions: leave on most painful area for up to 12 hrs Continued albuterol sulfate [ProAir HFA] 90 mcg/actuation HFA aerosol inhaler 1 puff Inhalation Q4H PRN 30 Days Qty: 1 6RF cetirizine [Zyrtec] 10 MG tablet 10 mg PO DAILY fluticasone propionate [Flonase Allergy Relief] 9.9 ML spray,suspension 1 spry NS DAILY PRN PRN atorvastatin 10 mg tablet 10 mg PO DAILY Qty: 90 3RF metformin 500 mg tablet 500 mg PO BID Qty: 180 3RF losartan 100 mg tablet See Rx Instructions .ROUTE .COMPLEX Qty: 90 3RF Dose Instruction: TAKE ONE TABLET BY MOUTH EVERY DAY Rx Instructions: TAKE ONE TABLET BY MOUTH EVERY DAY carvedilol 6.25 mg tablet 6.25 mg PO BID Qty: 180 3RF Rx Instructions: must administer with a meal/food allopurinol 300 mg tablet See Rx Instructions .ROUTE .COMPLEX Qty: 90 3RF Dose Instruction: TAKE 1 TABLET EVERY DAY Rx Instructions: TAKE 1 TABLET EVERY DAY ibuprofen 600 mg tablet 600 mg PO TID PRN (Reason: pain) Qty: 90 0RF nitroglycerin 0.4 mg tablet, sublingual 0.4 mg sublingual Q5M PRN acetaminophen 500 mg tablet 1,000 mg PO TID PRN Discharge Instructions Instructions: Taking care of bruises Additional Instructions: At this time no evidence of acute fractures or broken bones to the lower back or hip area. I do suspect that you are sore from your fall and you have multiple large contusions. Please continue to alternate ice and heat. Use the lidocaine patches as prescribed. Should start feeling better in the next few days. Please return to the ER or be seen again if any worsening pain, abdominal pain, or any concerns. Please take Tylenol or Ibuprofen with food every 4-6 hours as needed for pain and swelling please take with food. Referrals: Yandel Sosa DO [Primary Care Provider] - Return if symptoms worsen Discharge Data Discharge Date/Time-TO BE ENTERED AT DEPARTURE: 01/11/24 11:33 HPI General Mode of arrival: ambulatory. Date/Time Provider Initiated Documentation: 01/11/24 10:10. Limitations to Documentation: no limitations. Information obtained by: patient, RN notes reviewed and old records reviewed. HPI Narrative: 78-year-old male who presents to the ER with a chief complaint of left hip and lower back pain for a slip and fall onto couple of stairs 2 days ago. Patient has contusions and tenderness to his left hip and flank area around his coccyx as well. Denies any problems urinating burning of urination or blood in his urine denies any abdominal pain. He reports that he was feeling okay and then last night he had some increased pain and had to sleep in his chair. He is ambulatory with a slightly stiff gait here upon arrival. Distal pulses intact. Denies any neck pain or head pain denies hitting his head or loss of consciousness no loss of bowel or bladder control. He does have a past medical history of hypercholesterolemia, gout hypertension, type 2 diabetes, liver cirrhosis. Related Data Home Medications ?Medication ?Instructions ?Recorded ?Confirmed cetirizine 10 mg tablet (Zyrtec) 10 mg PO DAILY 02/21/13 01/11/24 fluticasone propionate 50 1 spry NS DAILY PRN PRN 02/17/15 01/11/24 mcg/actuation nasal spray,suspension (Flonase Allergy Relief) albuterol sulfate 90 mcg/actuation 1 puff inhalation Q4H PRN 30 days 05/22/22 01/11/24 aerosol inhaler (ProAir HFA) ##1 atorvastatin 10 mg tablet 10 mg PO DAILY #90 tabs 03/05/23 01/11/24 metformin 500 mg tablet 500 mg PO BID #180 tabs 03/05/23 01/11/24 losartan 100 mg tablet See Rx Instructions .Route 04/23/23 01/11/24 .COMPLEX #90 tabs carvedilol 6.25 mg tablet 6.25 mg PO BID #180 tabs 05/25/23 01/11/24 allopurinol 300 mg tablet See Rx Instructions .Route 06/11/23 01/11/24 .COMPLEX #90 tabs ibuprofen 600 mg tablet 600 mg PO TID PRN pain #90 tabs 01/09/24 01/11/24 acetaminophen 500 mg tablet 1,000 mg PO TID PRN 01/11/24 01/11/24 lidocaine 5 % topical patch 1 patch topical DAILY PRN Pain 7 01/11/24 days #15 ea nitroglycerin 0.4 mg sublingual 0.4 mg sublingual Q5M PRN 01/11/24 01/11/24 tablet Previous Rx's ?Medication ?Instructions ?Recorded albuterol sulfate 90 mcg/actuation 1 puff inhalation Q4H PRN 30 days 05/22/22 aerosol inhaler (ProAir HFA) ##1 atorvastatin 10 mg tablet 10 mg PO DAILY #90 tabs 03/05/23 metformin 500 mg tablet 500 mg PO BID #180 tabs 03/05/23 losartan 100 mg tablet See Rx Instructions .Route 04/23/23 .COMPLEX #90 tabs carvedilol 6.25 mg tablet 6.25 mg PO BID #180 tabs 05/25/23 allopurinol 300 mg tablet See Rx Instructions .Route 06/11/23 .COMPLEX #90 tabs ibuprofen 600 mg tablet 600 mg PO TID PRN pain #90 tabs 01/09/24 lidocaine 5 % topical patch 1 patch topical DAILY PRN Pain 7 01/11/24 days #15 ea Allergies Allergy/AdvReac Type Severity Reaction Status Date / Time amoxicillin (Amoxicillin) AdvReac Intermediate thrush Verified 01/11/24 10:05 omeprazole AdvReac Mild abdominal Verified 01/11/24 10:05 pain General Stated Complaint: Orthopedic BETTY: 3 Review of Systems All systems reviewed & are unremarkable except as noted in HPI and below Musculoskeletal Musculoskeletal: Reports as per HPI, Reports back pain and Reports arthralgias Integumentary/Breasts Skin/Breast: Reports as per HPI and Reports wounds (Bruising noted to left flank, hip area and coccyx area) Exam Narrative Exam Narrative: General: Well Developed, Awake and Alert, conversant. Skin: Warm and Dry HEENT: Head: No palpable deformities, Normocephalic Eyes: Pupils PERRLA, EOM's intact. No periorbital eccymosis or step off Ears: Canal patent. Tympanic membranes are clear . No jacobson's sign, no hemptympanum. Nose/Face: Atraumatic. Facial bones nontender to palpation and stable with manipulation. Mouth/Throat: No intraoral trauma. Teeth and mandible are intact. Neck: No midline tenderness, no step off, no deformity to palpation of C-spine. Trachea midline. Chest: No surface trauma. Nontender without crepitus or deformity. Lungs clear to ausculatation bilaterally. Heart: RRR, no rubs, murmurs or gallop. Abdomen: No abrasions, ecchymosis, or surface trauma. Nondistended. Nontender to palpation no guarding, rebound, or rigidity. Pelvis: Nontender to palpation and stable to compression. Femoral pulses strong and equal Extremities: Sensation intact. Peripheral pulses intact and equal. Bruises noted to flank area, coccyx area and left hip. Neuro: ANO x4, GCS 15, cranial nerves II through XII intact. Motor and sensory exam nonfocal. Reflexes are symmetric. Course Vital Signs Vital signs: Vital Signs Temperature 36.6 C 01/11/24 10:02 Pulse 75 01/11/24 10:02 Respiratory Rate 18 01/11/24 10:02 Blood Pressure 155/61 H 01/11/24 10:02 Pulse Oximetry 97 01/11/24 10:02 Temperature 36.6 C 01/11/24 10:02 Temperature Source Oral 01/11/24 10:02 Pulse 75 01/11/24 10:02 Respiratory Rate 18 01/11/24 10:02 Blood Pressure 155/61 H 01/11/24 10:02 Pulse Oximetry 97 01/11/24 10:02 Medical Decision Making 78-year-old male who presents to the ER with a chief complaint of left hip and lower back pain for a slip and fall onto couple of stairs 2 days ago. Patient has contusions and tenderness to his left hip and flank area around his coccyx as well. Denies any problems urinating burning of urination or blood in his urine denies any abdominal pain. He reports that he was feeling okay and then last night he had some increased pain and had to sleep in his chair. Lidocaine patch ordered, father milligrams Tylenol p.o., L-spine x-ray and left hip and pelvis. X-rays show degenerative changes no acute fracture noted. I will have patient continue with alternating ice and heat. Will prescribe lidocaine patches and discuss strict return instructions. Patient was ambulatory at discharge from department. Discussed home care follow-up care he verbalized understanding all his questions were answered to the best my ability. This text was generated using [employer] system, please disregard any oddities of phrase or misspellings. Imaging Data Radiologic Study: Imaging: X-Ray Radiologist's impression: EXAM: XR HIP LT COMPLETE AP PELVIS CLINICAL HISTORY: Fall. TECHNIQUE: 2D digital imaging was performed of the left hip. Three views were obtained. AP pelvis and lateral left hip views were obtained. COMPARISON: CR XR HIP LT COMPLETE AP PELVIS from 06/05/2019 FINDINGS: BONES: No acute fracture is present. No bony destructive lesion is seen. JOINTS: No dislocation present. There are degenerative changes seen in the lower lumbar spine in the hips. The sacroiliac joints and symphysis pubis are well maintained. SOFT TISSUE: Normal. IMPRESSION: No acute fracture or dislocation. Radiologic Study #2: Imaging: X-Ray (L-spine) Radiologist's impression: CLINICAL HISTORY: Fall,. TECHNIQUE: 2D digital imaging was performed of the lumbar spine. Five images were obtained. AP, lateral, right oblique, left oblique and L5-S1 spot views were obtained. COMPARISON: CR XR LUMBAR SPINE COMPLETE from 05/28/2023 FINDINGS: BONES: No fracture or destructive lesion. There are endplate osteophytes at all levels of the lumbar spine. Degenerative changes of the facets are seen in the lower lumbar spine. DISKS: Multilevel disc space narrowing is present. ALIGNMENT: Lumbar spinal alignment is within normal limits. No spondylolysis or spondylolisthesis. SOFT TISSUE: Vascular calcifications are present. IMPRESSION: No acute fracture or subluxation. Quality:SDOH Health Related Social Needs: No Data to Display PFSH All Active Problems (Updated 01/11/24 @ 11:23 by Khushboo Moura NP) Fall (on) (from) other stairs and steps, initial encounter (Acute) Contusion of left flank (Acute) Trigger finger, right middle finger (Acute) S/P Release: 01/09/2024 Fatigue (Acute) Displacement of right side of L4-L5 intervertebral disc (Acute) Otorrhea, right ear (Acute) Sensorineural hearing loss, bilateral (Acute) Acute suppurative otitis media of right ear with spontaneous rupture of tympanic membrane (Acute ~04/2023) right myringotomy w/ tympanostomy tube 05/11/23 Asthma (Chronic 10/01/13) PFT NL 10/2013 (low ERV) Chronic rhinitis (Chronic 02/20/11) Elev transaminase/LDH (Chronic 02/20/11) FATTY LIVER Essential hypertension (Chronic 12/31/12) Fatty liver (Chronic 12/09/14) Dr Misha AGOSTO [facility] follows immunization for Hep A&C recommended 12/2015 Gout, unspecified (Chronic 09/05/12) Obesity, unspecified (Chronic 02/20/11) Obstructive sleep apnea (Chronic 10/22/13) Dr García C-PAP FFM Other and unspecified hyperlipidemia (Chronic 09/05/12) PCEq 19.7%; LDL baseline 173 Cirrhosis of liver without ascites (Chronic) 03/02/18 DARRYL Viveros [facility] GI 08/26/19 F/U GI Portal hypertension (Chronic) 02/20/18 [facility] Type 2 diabetes mellitus without complications (Chronic) elevated bs dx 2013 Renal cyst (Acute) Bursitis of right shoulder (Acute ~02/2019) Bursitis of left shoulder (Acute ~02/2019) Left hip impingement syndrome (Acute) Degenerative joint disease of left hip (Acute) Colonic polyp (Acute) Colonoscopy Spring 2019; inadequate prep, needs repeat in 1-2 years Lactose intolerance (Acute) Diabetes mellitus (Chronic) Habitual alcohol use (Acute) Environmental allergies (Acute) Asymmetrical sensorineural hearing loss (Acute) Impacted cerumen, bilateral (Acute) Conductive hearing loss, external ear (Acute) Lumbar spondylosis (Acute) Cataracts, bilateral (Acute) 02/02/21 [facility] Functional diarrhea (Acute) Right flank pain (Acute) Balanitis (Acute ~11/2021) 11/22/21 [facility] (Acute ~11/2021) Pre-op evaluation (Acute) Dyspnea on exertion (Acute) Medical History Chronic back pain Hypercholesterolemia Surgical History Hx of cataract removal with insertion of prosthetic lens History of surgery repair bone under eye History of back surgery patient denies having back surgery 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 Family History Father , 88 yrs Asthma Dementia Mother , 91 yrs Dementia Sister Scoliosis Breathing problem Sister No problems noted. Sister No problems noted. Sister No problems noted. Son No problems noted. Daughter No problems noted. Daughter No problems noted. Other COPD (chronic obstructive pulmonary disease) Social History Smoking/Tobacco Use Status: Never Smoking risk assessment performed?: Yes Alcohol Intake: current Alcohol Intake frequency: 0-2 drinks per day Alcohol type: wine Drug use: Never Substance use type: does not use Adopted: No Household members: spouse Housing: house Number of Children: 3 Communication Needs: Corrective Lenses current occupation: Realtor Pets and animals: No Current gender identity: male What is your relationship status?: How often do you talk on the phone with friends or family?: three or more times per week Panel score (0-1 are the most socially isolated patients): 2 What type of physical activity do you participate in: walking Duration: 15-30 minutes/day Frequency: daily Seatbelt use: always Drive intox or ride w/intox professional driver: No Working smoke detector in home: Yes Carbon monox detector in home: Yes Do you feel safe at home: Yes Do you feel safe in your relationship?: Yes
[2024-01-11] MEDS: Acetaminophen 500 MG TAB PO (11:06)
[2024-01-11] MEDS: Lidocaine 5% Patch 1 PATCH TP (11:07)
[2024-01-11 11:09] VITALS: BP 133/41; PULSE 72; RESP 16; O2SAT 96
== END 2024-01-11 11:33 | disposition home or self-care (01) ==
PROVIDERS: Emergency Provider Registered Nurse Emergency; PCP Family Medicine
DX: S30.1XXA Contusion of abdominal wall, initial encounter (principal); E11.9 Type 2 diabetes mellitus without complications; I10 Essential (primary) hypertension; Z79.84 Long term (current) use of oral hypoglycemic drugs; W10.9XXA Fall (on) (from) unspecified stairs and steps, initial encounter; Y93.01 Activity, walking, marching and hiking; Y92.89 Other specified places as the place of occurrence of the external cause
CPT/HCPCS: 99283; 72110; 73502

== ENCOUNTER 2024-01-15 17:03 | Outpatient (REF) | payer MEDICARE, SELFPAY ==
[2024-01-15 19:12] LABS: HCT 29.5 % (40.0-50.0); HGB 10.3 g/dL (13.5-17.5); MCH 32.8 pg (27.0-33.0); MCHC 34.9 % (32.0-36.0); MCV 94 fL (80-95); MPV 9.9 fL (8.0-11.0); Platelet Count 179 10^3/uL (130-400); RBC 3.14 10^6/uL (4.36-5.78); RDW 14.1 % (11.8-14.1); RDW-SD 45.3 fL; WBC 4.81 10^3/uL (4.4-10.8)
[2024-01-15 19:29] LABS: ALT 27 U/L (16-63); AST 19 U/L (15-37); Albumin 3.8 g/dL (3.4-5.0); Alkaline Phosphatase 67 U/L (46-116); Anion Gap 9.3 mmol/L (3-11); BUN 18 mg/dL (7-18); Bilirubin, Total 1.16 mg/dL (0.2-1.0); CO2 27.7 mmol/L (21.0-32.0); CREATININE 0.9 mg/dL (0.70-1.30); Calcium 8.9 mg/dL (8.5-10.1); Chloride 107 mmol/L (98-107); Estimated GFR 87.42 (mL/min/1.73m2); Glucose 104 mg/dL (74-106); Potassium 4.2 mmol/L (3.5-5.1); Sodium 144 mmol/L (136-145); Total Protein 7.1 g/dL (6.4-8.2)
== END 2024-01-15 17:04 | disposition home or self-care (01) ==
LOC: LBN 17:03
PROVIDERS: PCP Family Medicine; Visit Provider Nurse Practitioner Family
DX: R58 Hemorrhage, not elsewhere classified (principal); R42 Dizziness and giddiness
CPT/HCPCS: 80053; 85027

== ENCOUNTER 2024-01-16 10:33 | Outpatient (CLI) | payer MEDICARE, SELFPAY ==
--- NOTE | 2024-01-16 09:30 | DI.CT_ITS ---
Exam(s) CT HEAD WO EXAM: CT HEAD WO CLINICAL HISTORY: dizziness R42 DIZZINESS AND GIDDINESS. TECHNIQUE: Imaging Protocol: Axial computed tomography images with coronal and sagittal reformatted images were created and reviewed COMPARISON: CT CT TEMPORAL BONE WO from 05/02/2023 FINDINGS: Exam limited by streak artifact. Ventricles and Extra axial spaces: Normal in size and morphology for the patient's age. Hemorrhage: None. Cerebral parenchyma: No evidence of acute infarct or mass. Mild white matter changes likely seconda ry to microvascular disease. Midline shift: None. Brainstem/Cerebellum: Normal. Calvarium: Normal. Visualized Paranasal sinuses:Tiny mucous retention cyst in the left maxillary sinus. Mastoids: Opacification some right inferior ethmoid air cells is noted. The appearance is improved f rom the prior exam with greater aeration. No bony destruction. The external and internal auditory c anals now appear clear. The left side appears normal. Soft Tissues: Unremarkable. ORBITS: Unremarkable. Metallic sutures again noted at the right orbit PITUITARY: Not enlarged. IMPRESSION: No acute intracranial process. RADIATION DOSE DELIVERED: 914.18mGy.cm Total DLP DATA REPOSITORY: All CT scans at this facility are submitted to the National Radiology Data Registry (NRDR) Dose Index Registry (DIR) with the [employer] (ACR). RADIATION OPTIMIZATION: All CT scans at this facility use at least one of these dose optimization te chniques: automated exposure control; mA and/or kV adjustment per patient size (includes targeted exa ms where dose is matched to clinical indication); or iterative reconstruction.
== END 2024-01-16 10:53 ==
LOC: DI 10:33
PROVIDERS: PCP Family Medicine; Visit Provider Nurse Practitioner Family
DX: R42 Dizziness and giddiness (principal)
CPT/HCPCS: 70450

== ENCOUNTER → 2024-01-18 10:41 | Outpatient (BNVA) | payer MEDICARE, SELFPAY | PROVIDERS: PCP Family Medicine; Referring Provider Family Medicine | DX: Z47.89 Encounter for other orthopedic aftercare (principal); M79.641 Pain in right hand | CPT/HCPCS: 99024 ==

== ENCOUNTER 2024-02-21 04:41 | Outpatient (CLI) | payer MEDICARE, SELFPAY ==
[2024-02-21 11:21] LABS: Abs Immature Grans 0.01 10^3/uL (0.0-0.06); Absolute Basophil Count 0.01 10^3/uL (0.0-0.2); Absolute Eosinophil Count 0.18 10^3/uL (0.0-0.7); Absolute Lymphocyte Count 1.02 10^3/uL (1.2-3.4); Absolute Monocyte Count 0.18 10^3/uL (0.1-0.8); Absolute Neutrophil Count 2.82 10^3/uL (1.2-6.7); Basophils % 0.2 %; Eosinophils % 4.3 %; HCT 39.4 % (40.0-50.0); HGB 13.4 g/dL (13.5-17.5); Immature Grans % 0.2 %; Lymphocytes % 24.2 %; MCH 31.9 pg (27.0-33.0); MCV 94 fL (80-95); MPV 9.6 fL (8.0-11.0); Monocytes % 4.3 %; Neutrophils % 66.8 %; Platelet Count 133 10^3/uL (130-400); RDW 13.2 % (11.8-14.1); RDW-SD 45.1 fL; WBC 4.22 10^3/uL (4.4-10.8)
== END 2024-02-21 04:42 | disposition home or self-care (01) ==
LOC: LBO 04:41
PROVIDERS: PCP Family Medicine; Referring Provider Family Medicine; Visit Provider Family Medicine
DX: D64.9 Anemia, unspecified (principal)
CPT/HCPCS: 36415; 85025

== ENCOUNTER → 2024-07-21 09:22 | Outpatient (BNVA) | payer MEDICARE, SELFPAY | PROVIDERS: PCP Family Medicine; Referring Provider Family Medicine; Visit Provider Student in an Organized Health Care Education/Training Program | DX: M65.332 Trigger finger, left middle finger (principal) | CPT/HCPCS: 99213 ==

== ENCOUNTER 2024-07-31 14:09 | Outpatient (CLI) | payer MEDICARE, SELFPAY ==
--- NOTE | 2024-07-31 13:45 | DI.RAD_ITS ---
Exam(s) XR HIP RT COMPLETE AP PELVIS EXAM: XR HIP RT COMPLETE AP PELVIS CLINICAL HISTORY: right hip pain. TECHNIQUE: 2D digital imaging was performed. Two views COMPARISON: CR XR HIP LT COMPLETE AP PELVIS from 06/05/2019 FINDINGS: BONES: No acute fracture is present. No bony destructive lesion is seen. JOINTS: No dislocation present. There is moderate narrowing of the hip joint spaces bilaterally and bilateral moderate acetabular spurring. Minimal spurring is noted at the femoral heads. SOFT TISSUE: Normal. IMPRESSION: No acute abnormality. Moderate degenerative changes of both hips. DATA REPOSITORY: RADIATION DOSE DELIVERED:
== END 2024-07-31 14:10 | disposition home or self-care (01) ==
LOC: DIORS 14:09
PROVIDERS: PCP Family Medicine; Referring Provider Family Medicine; Visit Provider Physician Assistant
DX: M25.551 Pain in right hip (principal); M16.11 Unilateral primary osteoarthritis, right hip
CPT/HCPCS: 99213; 20611; J1010; 73502

== ENCOUNTER → 2025-01-23 08:52 | Outpatient (BNVA) | payer MEDICARE, SELFPAY | PROVIDERS: PCP Family Medicine; Referring Provider Family Medicine; Visit Provider Physician Assistant | DX: M16.11 Unilateral primary osteoarthritis, right hip (principal) | CPT/HCPCS: 20611; J1010 ==